=== PATIENT | male | born 1950 | race Caucasian/White ===

== ENCOUNTER 2019-09-23 11:53 | Outpatient (CLI) | payer MEDICARE, OTHER, SELFPAY ==
[2019-09-23 12:39] LABS: Basophils # 0.2 10^3/uL (0.0-0.1); Basophils % 1.7 %; Eosinophils # 0.1 10^3/uL (0.0-0.8); Eosinophils % 0.6 %; Hematocrit 50.6 % (42.0-52.0); Hemoglobin 17.4 g/dL (11.7-16.6); Lymphocytes # 0.7 10^3/uL (0.8-4.8); Lymphocytes % 5.5 %; Mean Corpuscular HGB Conc 34.4 g/dL (30.0-36.0); Mean Corpuscular Hemoglobin 38.4 pg (28.0-34.0); Mean Corpuscular Volume 111.7 fL (80-94); Mean Platelet Volume 9.8 fL (7.4-10.4); Monocytes # 0.3 10^3/uL (0.2-0.9); Monocytes % 2.4 %; Nucleated Red Blood Cells % 0 %; Platelet Count 323 10^3/cmm (130-400); Red Blood Count 4.53 10^6/uL (4.1-5.3); Red Cell Distribution Width 16.7 % (12.1-15.1); White Blood Count 12.3 10^3/uL (4.0-10.0)
[2019-09-23 13:00] LABS: Ferritin 161 ng/mL (30-400)
[2019-09-23 13:17] LABS: Slide Review Slide Review Perform
[2019-09-23 13:31] VITALS: BP 120/93; PULSE 61; RESP 20; TEMP 36.1; O2SAT 95
[2019-09-23 13:36] VITALS: BMI 31.6
== END 2019-09-23 11:54 | disposition home or self-care (01) ==
PROVIDERS: Family Provider Nurse Practitioner; PCP Family Medicine; Visit Provider Surgery Plastic and Reconstructive Surgery
DX: E83.119 Hemochromatosis, unspecified (principal)
CPT/HCPCS: 36415; 82728; 85025; 99195; J2001

== ENCOUNTER → 2019-10-05 10:53 | Outpatient (BNVA) | payer MEDICARE, OTHER, SELFPAY | PROVIDERS: Family Provider Nurse Practitioner; PCP Family Medicine; Visit Provider Surgery Plastic and Reconstructive Surgery | DX: D75.1 Secondary polycythemia (principal) | CPT/HCPCS: 85025 ==

== ENCOUNTER → 2019-11-03 10:33 | Outpatient (BNVA) | payer MEDICARE, OTHER, SELFPAY | PROVIDERS: Family Provider Nurse Practitioner; PCP Family Medicine; Visit Provider Surgery Plastic and Reconstructive Surgery | DX: D45 Polycythemia vera (principal) | CPT/HCPCS: 85025 ==

== ENCOUNTER → 2019-12-03 09:32 | Outpatient (BNVA) | payer MEDICARE, OTHER, SELFPAY | PROVIDERS: Family Provider Nurse Practitioner; PCP Family Medicine; Visit Provider Surgery Plastic and Reconstructive Surgery | DX: D45 Polycythemia vera (principal) | CPT/HCPCS: 85025 ==

== ENCOUNTER → 2020-01-06 09:02 | Outpatient (BNVA) | payer MEDICARE, OTHER, SELFPAY | PROVIDERS: Family Provider Nurse Practitioner; PCP Family Medicine; Visit Provider Surgery Plastic and Reconstructive Surgery | DX: D45 Polycythemia vera (principal) | CPT/HCPCS: 85025 ==

== ENCOUNTER → 2020-02-08 10:08 | Outpatient (BNVA) | payer MEDICARE, OTHER, SELFPAY | PROVIDERS: Family Provider Nurse Practitioner; PCP Family Medicine; Visit Provider Surgery Plastic and Reconstructive Surgery | DX: D45 Polycythemia vera (principal) | CPT/HCPCS: 85025 ==

== ENCOUNTER → 2020-03-14 13:57 | Outpatient (BNVA) | payer MEDICARE, OTHER, SELFPAY | PROVIDERS: Family Provider Nurse Practitioner; PCP Family Medicine; Visit Provider Surgery Plastic and Reconstructive Surgery | DX: E83.119 Hemochromatosis, unspecified (principal) | CPT/HCPCS: 85025 ==

== ENCOUNTER → 2020-04-13 14:38 | Outpatient (BNVA) | payer MEDICARE, OTHER, SELFPAY | PROVIDERS: Family Provider Nurse Practitioner; PCP Family Medicine; Visit Provider Surgery Plastic and Reconstructive Surgery | DX: E83.119 Hemochromatosis, unspecified (principal) | CPT/HCPCS: 85025 ==

== ENCOUNTER → 2020-05-23 15:44 | Outpatient (BNVA) | payer MEDICARE, OTHER, SELFPAY | PROVIDERS: Family Provider Nurse Practitioner; PCP Family Medicine; Visit Provider Surgery Plastic and Reconstructive Surgery | DX: D45 Polycythemia vera (principal) | CPT/HCPCS: 85025 ==

== ENCOUNTER → 2020-06-24 13:04 | Outpatient (BNVA) | payer MEDICARE, OTHER, SELFPAY | PROVIDERS: Family Provider Nurse Practitioner; PCP Family Medicine; Visit Provider Nurse Practitioner Family | DX: D45 Polycythemia vera (principal) | CPT/HCPCS: 85025 ==

== ENCOUNTER → 2020-07-13 10:47 | Outpatient (BNVA) | payer MEDICARE, OTHER, SELFPAY | PROVIDERS: Family Provider Nurse Practitioner; PCP Family Medicine; Visit Provider Nurse Practitioner Family | DX: D45 Polycythemia vera (principal) | CPT/HCPCS: 85025 ==

== ENCOUNTER → 2020-09-01 08:47 | Outpatient (BNVA) | payer MEDICARE, OTHER, SELFPAY | PROVIDERS: Family Provider Nurse Practitioner; PCP Family Medicine; Visit Provider Surgery Plastic and Reconstructive Surgery | DX: D75.1 Secondary polycythemia (principal) | CPT/HCPCS: 85025 ==

== ENCOUNTER → 2020-10-26 10:39 | Outpatient (BNVA) | payer MEDICARE, OTHER, SELFPAY | PROVIDERS: Family Provider Nurse Practitioner; PCP Family Medicine; Visit Provider Surgery Plastic and Reconstructive Surgery | DX: D75.1 Secondary polycythemia (principal) | CPT/HCPCS: 85025 ==

== ENCOUNTER → 2020-11-23 09:08 | Outpatient (BNVA) | payer MEDICARE, OTHER, SELFPAY | PROVIDERS: Family Provider Nurse Practitioner; PCP Family Medicine; Visit Provider Surgery Plastic and Reconstructive Surgery | DX: D64.9 Anemia, unspecified (principal); E83.110 Hereditary hemochromatosis; E55.9 Vitamin D deficiency, unspecified | CPT/HCPCS: 82306; 82607; 82746; 83090; 83550; 84153; 85025 ==

== ENCOUNTER → 2021-01-10 13:09 | Outpatient (BNVA) | payer MEDICARE, OTHER, SELFPAY | PROVIDERS: Family Provider Nurse Practitioner; PCP Family Medicine; Visit Provider Surgery Plastic and Reconstructive Surgery | DX: D75.1 Secondary polycythemia (principal) | CPT/HCPCS: 85025 ==

== ENCOUNTER → 2021-02-21 09:18 | Outpatient (BNVA) | payer MEDICARE, OTHER, SELFPAY | PROVIDERS: Family Provider Nurse Practitioner; PCP Family Medicine; Visit Provider Surgery Plastic and Reconstructive Surgery | DX: D45 Polycythemia vera (principal) | CPT/HCPCS: 85025 ==

== ENCOUNTER → 2021-06-06 14:14 | Outpatient (BNVA) | payer MEDICARE, OTHER, SELFPAY | PROVIDERS: Family Provider Nurse Practitioner; PCP Family Medicine; Visit Provider Surgery Plastic and Reconstructive Surgery | DX: D64.9 Anemia, unspecified (principal) | CPT/HCPCS: 85025 ==

== ENCOUNTER 2021-07-19 13:38 | Inpatient (IN) | payer MEDICARE, OTHER, SELFPAY ==
[2021-07-19 13:50] VITALS: BP 126/69; PULSE 80; RESP 18; TEMP 36.8; O2SAT 86; BMI 31.4
--- NOTE | 2021-07-19 13:55 | XR_ITS ---
WS: [id number] Exam: XR chest 1V portable [id number] Date/Time of Exam: 07/19/2021 1:55 PM Reason For Exam: covid No previous exams. Groundglass and consolidating infiltrates noted in the right lung and also left lower lung zone. Nor mal cardiomediastinal silhouette. No pleural effusions or pneumothorax. Bony structures are intact. XR/XR chest 1V portable [id number] IMPRESSION: 1. Groundglass and consolidating infiltrates in the right lung most marked in t he right basal region. There is also mild groundglass infiltrate in the left lo wer lung zone.
--- NOTE | 2021-07-19 16:48 | W.ED.SOB ---
HPI - SOB/Dyspnea General: Chief Complaint: ER Hold Stated Complaint: COVID +/SOB/DIZZY Time Seen by Provider: 07/19/21 16:48 History of Present Illness: HPI Narrative: Mr. Duarte is a 71-year-old gentleman with significant past medical history of atrial fibrillation and polycythemia vera who presents the emergency department due to generalized malaise. Symptom onset was 7 days ago, he endorses fatigue, cough, chills, generalized malaise. He is known Covid positive. Overall the course of symptoms has been worsening. Intensity is moderate to severe. He does not typically wear oxygen and is now requiring oxygen. No other significant changes to health, alleviating, or exacerbating factors identified Review of Systems General: Reports: 10 or more systems reviewed and unremarkable except in HPI and below PFS ED PFSH: Medical History (Updated 07/22/21 @ 14:57 by Amaya Buck MD) Atrial fibrillation on amiodarone and metoprolol Benign prostatic hyperplasia Polycythemia vera Surgical History (Updated 07/20/21 @ 04:42 by Catia Lei MD) No pertinent past surgical history Family History (Updated 07/20/21 @ 04:43 by Catia Lei MD) Other Atrial fibrillation Denies family history of Polycythemia vera Social History (Updated 07/20/21 @ 04:44 by Catia Lei MD) Smoking and tobacco status: never smoked Alcohol intake: never Substance/Drug Use: never Lives independently: Yes Household members: spouse and children Marital status: Physical Exam Narrative: EXAM NARRATIVE: GENERAL/CONSTITUTIONAL -ill-appearing. Nontoxic Eyes - PERRL, no conjunctival injection ENMT - Atraumatic external nose and ears. Dry mucous membranes NECK - supple. trachea midline CARDIOVASCULAR - regular rate and rhythm. Peripheral pulses 2+ and equal RESPIRATORY -diminished to auscultation and coarse bilaterally. Increased work of breathing with mild accessory muscle use and marked worsening with removal of oxygen ABDOMEN/GI - Nontender/Nondistended. MSK - Extremities without obvious deformity or tenderness to palpation SKIN - Warm, Dry NEURO - alert and appropriately oriented. Moves all extremities equally. Course ED course: - Patient was seen and evaluated by me at bedside - Patient placed on cardiac monitors, IV access obtained - Initial evaluation notable for ill appearance, respiratory distress when oxygen removed as noted above -Treatment ordered - Labs notable for no leukocyte, elevated hemoglobin likely combination of dehydration and polycythemia. Low PO2 even on supplemental oxygen. Metabolic panel notable for likely dehydration. Covid positive. - Imaging notable for groundglass and consolidating infiltrate - Upon serial reexamination after treatment the patient was mildly improved with improvement on supplemental oxygen - Based on patient history, evaluation, labs, and imaging as interpreted the most likely cause of the patient's condition is COVID-19 pneumonia with acute hypoxic respiratory failure - The results of ED evaluation were discussed with the patient including plan for admission due to requirement for level of care not available if discharged to prevent significant worsening/deterioration. - Hospitalist service contacted and agreed admit the patient - Patient was admitted without further deterioration or significant events. Vital Signs: Vital signs: Vital Signs Temperature 97.8 F 07/24/21 17:00 Pulse Rate 78 07/24/21 19:57 Respiratory Rate 18 07/24/21 19:57 Blood Pressure 112/64 07/24/21 17:00 Pulse Oximetry 91 07/24/21 19:57 MDM - SOB/Dyspnea Medical Records: Attestation: I reviewed the patient's medical records. Lab Data: Attestation: I reviewed the patient's lab results. Labs: Lab Results 07/19/21 07/19/21 07/19/21 17:00 17:00 17:00 WBC 8.6 10^3/uL 10^3/ uL (4.0-10.0) RBC 4.90 10^6/uL 10^6 /uL (4.1-5.3) Hgb 18.8 g/dL H g/dL (11.7-16.6) Hct 55.2 % H % (42.0-52.0) MCV 112.7 fl H fl (80-94) MCH 38.4 pg H pg (28.0-34.0) MCHC 34.1 g/dL g/dL (30.0-36.0) RDW 14.7 % % (12.1-15.1) Plt Count 247 10^3/cmm 10^3 /cmm (130-400) MPV 9.9 fL fL (7.4-10.4) Neut % (Auto) 94.7 % % Lymph % (Auto) 2.0 % % [place] % (Auto) 1.9 % % Eos % (Auto) 0.0 % % Baso % (Auto) 0.5 % % Neut # (Auto) 8.10 10^3/uL H 10 ^3/uL (1.8-7.7) Lymph # (Auto) 0.2 10^3/uL L 10^ 3/uL (0.8-4.8) [place] # (Auto) 0.2 10^3/uL 10^3/ uL (0.2-0.9) Eos # (Auto) 0.0 10^3/uL 10^3/ uL (0.0-0.8) Baso # (Auto) 0.0 10^3/uL 10^3/ uL (0.0-0.1) Nucleated RBC % (a uto) 0 % % Nucleated RBCs # 0.0 /100WBC /100W BC PT INR APTT Fibrinogen D-Dimer Specimen Type Sample Site ABG pH ABG pCO2 ABG pO2 ABG HCO3 ABG Base Excess Omar Test Hematocrit O2 Delivery Device O2 Liters/Min Foreign Language Stenographer ID Sodium 130 mmol/L L mmol /L (136-145) Potassium 4.1 mmol/L mmol/L (3.5-5.1) Chloride 92 mmol/L L mmol/ L (98-107) Carbon Dioxide 26 mmol/L mmol/L (22-29) Anion Gap 16.1 (5-19) BUN 28 mg/dL H mg/dL (8-23) Creatinine 1.2 mg/dL mg/dL (0.7-1.2) GFR Calculation Not Reportable Glucose 138 mg/dL H mg/dL (65-115) POC Glucose Estimat Average Gl ucose Hemoglobin A1c Calculated Osmolal ity 278 mOsm/kg L mOs m/kg (285-295) Lactic Acid Calcium 8.0 mg/dL L mg/dL (8.5-10.5) Phosphorus Magnesium Ferritin Total Bilirubin 1.7 mg/dL H mg/dL (0.15-1.2) AST 16 U/L U/L (0-40) ALT 18 U/L U/L (0-41) Alkaline Phosphata se 93 IU/L IU/L (40-130) Lactate Dehydrogen ase Creatine Kinase Troponin T Baselin e 13 ng/L ng/L (0-15) Troponin T 120 Min [place] Delta Troponin T Troponin T Hi Sens 6Hr Troponin T Hi Sens 6Hr Delta C-Reactive Protein 152.0 mg/L H mg/L (0.0-4.9) NT-Pro-B Natriuret Pep Total Protein 6.5 g/dL L g/dL (6.6-8.7) Albumin 3.4 g/dL L g/dL (3.5-5.2) Globulin 3.1 g/dL g/dL (1.3-4.6) Procalcitonin 0.38 ng/mL ng/mL (0-0.5) Nasal/Oral COVID-1 9 PCR Influenza Type A A g Influenza Type B A g SARS-CoV-2 Ag (Rap id) 07/19/21 07/19/21 07/19/21 17:42 19:41 21:21 WBC RBC Hgb Hct MCV MCH MCHC RDW Plt Count MPV Neut % (Auto) Lymph % (Auto) [place] % (Auto) Eos % (Auto) Baso % (Auto) Neut # (Auto) Lymph # (Auto) [place] # (Auto) Eos # (Auto) Baso # (Auto) Nucleated RBC % (a uto) Nucleated RBCs # PT INR APTT Fibrinogen D-Dimer Specimen Type Arterial Sample Site Radial, left ABG pH 7.50 H (7.35-7.45) ABG pCO2 33.0 mmHg L mmHg (35-45) ABG pO2 49.9 mmHg L mmHg (80.0-100.0) ABG HCO3 25.4 mmol/L mmol/ L (22-26) ABG Base Excess 2.9 mmol/L H mmol /L (-2.0-2.0) Omar Test Pos Hematocrit 57.2 % H % (42-52) O2 Delivery Device Nc O2 Liters/Min 4.0 % % Foreign Language Stenographer ID [place] Sodium Potassium Chloride Carbon Dioxide Anion Gap BUN Creatinine GFR Calculation Glucose POC Glucose Estimat Average Gl ucose Hemoglobin A1c Calculated Osmolal ity Lactic Acid Calcium Phosphorus Magnesium Ferritin Total Bilirubin AST ALT Alkaline Phosphata se Lactate Dehydrogen ase Creatine Kinase Troponin T Baselin e Troponin T 120 Min [place] 12.52 ng/L ng/L (0-15) Delta Troponin T -0.48 ABS# L ABS# (0-10) Troponin T Hi Sens 6Hr Troponin T Hi Sens 6Hr Delta C-Reactive Protein NT-Pro-B Natriuret Pep Total Protein Albumin Globulin Procalcitonin Nasal/Oral COVID-1 9 PCR Detected H Influenza Type A A g Influenza Type B A g SARS-CoV-2 Ag (Rap id) 07/19/21 07/19/21 07/19/21 21:21 23:11 23:11 WBC RBC Hgb Hct MCV MCH MCHC RDW Plt Count MPV Neut % (Auto) Lymph % (Auto) [place] % (Auto) Eos % (Auto) Baso % (Auto) Neut # (Auto) Lymph # (Auto) [place] # (Auto) Eos # (Auto) Baso # (Auto) Nucleated RBC % (a uto) Nucleated RBCs # PT 18.80 SECONDS H S ECONDS (12.1-14.9) INR 1.53 H (0.8-1.2) APTT 37.5 SECONDS H SE CONDS (23.9-36.7) Fibrinogen 590 mg/dL H mg/dL (174-498) D-Dimer 0.91 ug/mIFEU H u g/mIFEU (0-0.59) Specimen Type Sample Site ABG pH ABG pCO2 ABG pO2 ABG HCO3 ABG Base Excess Omar Test Hematocrit O2 Delivery Device O2 Liters/Min Foreign Language Stenographer ID Sodium Potassium Chloride Carbon Dioxide Anion Gap BUN Creatinine GFR Calculation Glucose POC Glucose Estimat Average Gl ucose Hemoglobin A1c Calculated Osmolal ity Lactic Acid Calcium Phosphorus Magnesium Ferritin Total Bilirubin AST ALT Alkaline Phosphata se Lactate Dehydrogen ase Creatine Kinase Troponin T Baselin e Troponin T 120 Min [place] Delta Troponin T Troponin T Hi Sens 6Hr 11.01 ng/L ng/L (0-15) Troponin T Hi Sens 6Hr Delta -1.99 ng/L L ng/L (0-12) C-Reactive Protein NT-Pro-B Natriuret Pep Total Protein Albumin Globulin Procalcitonin Nasal/Oral COVID-1 9 PCR Influenza Type A A g Influenza Type B A g SARS-CoV-2 Ag (Rap id) Positive H (Negative) 07/19/21 07/19/21 07/19/21 23:11 23:11 23:11 WBC RBC Hgb Hct MCV MCH MCHC RDW Plt Count MPV Neut % (Auto) Lymph % (Auto) [place] % (Auto) Eos % (Auto) Baso % (Auto) Neut # (Auto) Lymph # (Auto) [place] # (Auto) Eos # (Auto) Baso # (Auto) Nucleated RBC % (a uto) Nucleated RBCs # PT INR APTT Fibrinogen D-Dimer Specimen Type Sample Site ABG pH ABG pCO2 ABG pO2 ABG HCO3 ABG Base Excess Omar Test Hematocrit O2 Delivery Device O2 Liters/Min Foreign Language Stenographer ID Sodium Potassium Chloride Carbon Dioxide Anion Gap BUN Creatinine GFR Calculation Glucose POC Glucose 141 mg/dL H mg/dL (70-110) Estimat Average Gl ucose Hemoglobin A1c Calculated Osmolal ity Lactic Acid 1.0 mmol/L mmol/L (0.5-2.2) Calcium Phosphorus Magnesium Ferritin 473 ng/mL H ng/mL (30-400) Total Bilirubin AST ALT Alkaline Phosphata se Lactate Dehydrogen ase 234 U/L H U/L (135-225) Creatine Kinase 84 U/L U/L (39-308) Troponin T Baselin e Troponin T 120 Min [place] Delta Troponin T Troponin T Hi Sens 6Hr Troponin T Hi Sens 6Hr [place] C-Reactive Protein NT-Pro-B Natriuret Pep 255 pg/mL H pg/mL (0-125) Total Protein Albumin Globulin Procalcitonin Nasal/Oral COVID-1 9 PCR Influenza Type A A g Influenza Type B A g SARS-CoV-2 Ag (Rap id) 07/19/21 07/20/21 07/20/21 23:13 05:48 05:48 WBC 7.0 10^3/uL 10^3/ uL (4.0-10.0) RBC 4.58 10^6/uL 10^6 /uL (4.1-5.3) Hgb 17.3 g/dL H g/dL (11.7-16.6) Hct 51.2 % % (42.0-52.0) MCV 111.8 fl H fl (80-94) MCH 37.8 pg H pg (28.0-34.0) MCHC 33.8 g/dL g/dL (30.0-36.0) RDW 14.5 % % (12.1-15.1) Plt Count 198 10^3/cmm 10^3 /cmm (130-400) MPV 10.5 fL H fL (7.4-10.4) Neut % (Auto) 96.5 % % Lymph % (Auto) 1.6 % % [place] % (Auto) 0.9 % % Eos % (Auto) 0.0 % % Baso % (Auto) 0.4 % % Neut # (Auto) 6.77 10^3/uL 10^3 /uL (1.8-7.7) Lymph # (Auto) 0.1 10^3/uL L 10^ 3/uL (0.8-4.8) [place] # (Auto) 0.1 10^3/uL L 10^ 3/uL (0.2-0.9) Eos # (Auto) 0.0 10^3/uL 10^3/ uL (0.0-0.8) Baso # (Auto) 0.0 10^3/uL 10^3/ uL (0.0-0.1) Nucleated RBC % (a uto) 0 % % Nucleated RBCs # 0.0 /100WBC /100W BC PT INR APTT Fibrinogen D-Dimer Specimen Type Sample Site ABG pH ABG pCO2 ABG pO2 ABG HCO3 ABG Base Excess Omar Test Hematocrit O2 Delivery Device O2 Liters/Min Foreign Language Stenographer ID Sodium 133 mmol/L L mmol /L (136-145) Potassium 4.9 mmol/L mmol/L (3.5-5.1) Chloride 96 mmol/L L mmol/ L (98-107) Carbon Dioxide 23 mmol/L mmol/L (22-29) Anion Gap 18.9 (5-19) BUN 29 mg/dL H mg/dL (8-23) Creatinine 0.9 mg/dL mg/dL (0.7-1.2) GFR Calculation Not Reportable Glucose 190 mg/dL H mg/dL (65-115) POC Glucose Estimat Average Gl ucose Hemoglobin A1c Calculated Osmolal ity 287 mOsm/kg mOsm/ kg (285-295) Lactic Acid Calcium 8.1 mg/dL L mg/dL (8.5-10.5) Phosphorus 3.8 mg/dL mg/dL (2.5-4.5) Magnesium 2.4 mg/dL H mg/dL (1.7-2.3) Ferritin Total Bilirubin 1.2 mg/dL mg/dL (0.15-1.2) AST 13 U/L U/L (0-40) ALT 14 U/L U/L (0-41) Alkaline Phosphata se 77 IU/L IU/L (40-130) Lactate Dehydrogen ase Creatine Kinase Troponin T Baselin e Troponin T 120 Min [place] Delta Troponin T Troponin T Hi Sens 6Hr Troponin T Hi Sens 6Hr Delta C-Reactive Protein NT-Pro-B Natriuret Pep Total Protein 5.9 g/dL L g/dL (6.6-8.7) Albumin 3.3 g/dL L g/dL (3.5-5.2) Globulin 2.6 g/dL g/dL (1.3-4.6) Procalcitonin Nasal/Oral COVID-1 9 PCR Influenza Type A A g Negative (Negative) Influenza Type B A g Negative (Negative) SARS-CoV-2 Ag (Rap id) 07/20/21 05:48 WBC RBC Hgb Hct MCV MCH MCHC RDW Plt Count MPV Neut % (Auto) Lymph % (Auto) [place] % (Auto) Eos % (Auto) Baso % (Auto) Neut # (Auto) Lymph # (Auto) [place] # (Auto) Eos # (Auto) Baso # (Auto) Nucleated RBC % (a uto) Nucleated RBCs # PT INR APTT Fibrinogen D-Dimer Specimen Type Sample Site ABG pH ABG pCO2 ABG pO2 ABG HCO3 ABG Base Excess Omar Test Hematocrit O2 Delivery Device O2 Liters/Min Foreign Language Stenographer ID Sodium Potassium Chloride Carbon Dioxide Anion Gap BUN Creatinine GFR Calculation Glucose POC Glucose Estimat Average Gl ucose 100 Hemoglobin A1c 5.1 % % (4.0-6.0) Calculated Osmolal ity Lactic Acid Calcium Phosphorus Magnesium Ferritin Total Bilirubin AST ALT Alkaline Phosphata se Lactate Dehydrogen ase Creatine Kinase Troponin T Baselin e Troponin T 120 Min [place] Delta Troponin T Troponin T Hi Sens 6Hr Troponin T Hi Sens 6Hr Delta C-Reactive Protein NT-Pro-B Natriuret Pep Total Protein Albumin Globulin Procalcitonin Nasal/Oral COVID-1 9 PCR Influenza Type A A g Influenza Type B A g SARS-CoV-2 Ag (Rap id) EKG Data^: EKG 1: Attestation: I personally reviewed and interpreted this EKG as follows: EKG Interpretation Date: 07/19/21 EKG interpretation time: 18:02 Interpretation: Twelve-lead EKG shows a regular rhythm at a rate of 81. AR interval 158, QRS duration 92, QTc 408. Normal axis. Interpretation: Sinus rhythm. PVC. 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
--- NOTE | 2021-07-19 17:19 | ECG_ITS ---
[facility] Test Date: 2021-07-19 Pat Name: Daquan Duarte Department: Room: Gender: Male Hub Borer: : [id number] Requested By: Brenden Carlson Order Number: [id number] Kat MD: Little Mccabe M.D. Measurements Intervals [place] Rate: 81 P: 130 [place]: 158 QRS: 12 QRSD: 92 T: 30 QT: 370 QTc: 432 Interpretive Statements SINUS RHYTHM WITH OCCASIONAL WITH OCCASIONAL SUPRAVENTRICULAR PREMATURE COMPLEXES No previous ECG available for comparison Electronically Signed On 07-20-2021 4:16:22 CURB SETTER HELPER by Little Mccabe M.D. [id number]
[2021-07-19 17:24] LABS: Basophils % 0.5 %; Hematocrit 55.2 % (42.0-52.0); Hemoglobin 18.8 g/dL (11.7-16.6); Lymphocytes # 0.2 10^3/uL (0.8-4.8); Mean Corpuscular HGB Conc 34.1 g/dL (30.0-36.0); Mean Corpuscular Hemoglobin 38.4 pg (28.0-34.0); Mean Corpuscular Volume 112.7 fl (80-94); Mean Platelet Volume 9.9 fL (7.4-10.4); Monocytes # 0.2 10^3/uL (0.2-0.9); Monocytes % 1.9 %; Neutrophils % 94.7 %; Nucleated Red Blood Cells % 0 %; Platelet Count 247 10^3/cmm (130-400); Red Cell Distribution Width 14.7 % (12.1-15.1); White Blood Count 8.6 10^3/uL (4.0-10.0)
[2021-07-19 17:37] LABS: Alanine Aminotransferase 18 U/L (0-41); Albumin Level 3.4 g/dL (3.5-5.2); Alkaline Phosphatase 93 IU/L (40-130); Anion Gap 16.1 (5-19); Aspartate Amino Transferase 16 U/L (0-40); Blood Urea Nitrogen 28 mg/dL (8-23); Carbon Dioxide 26 mmol/L (22-29); Chloride 92 mmol/L (98-107); Globulin 3.1 g/dL (1.3-4.6); Glucose 138 mg/dL (65-115); Osmolality Calculated 278 mOsm/kg (285-295); Potassium 4.1 mmol/L (3.5-5.1); Sodium 130 mmol/L (136-145); Total Bilirubin 1.7 mg/dL (0.15-1.2); Total Protein 6.5 g/dL (6.6-8.7)
[2021-07-19 17:44] LABS: Procalcitonin 0.38 ng/mL (0-0.5)
[2021-07-19 17:46] VITALS: BP 136/74; PULSE 81; RESP 15; TEMP 39.4; O2SAT 88
[2021-07-19 17:57] LABS: Arterial Blood Gas Hematocrit 57.2 % (42-52); Base Excess ABG 2.9 mmol/L (-2.0-2.0); Blood Gas Allen Test Pos; Blood Gas Sample Site Radial, left; Blood Gas Sample Type Arterial; HCO3 ABG 25.4 mmol/L (22-26); Oxygen Device NC; PO2 ABG 49.9 mmHg (80.0-100.0)
[2021-07-19] MEDS: sodium chloride 0.9% 500 ML 999 ML IV (18:16)
[2021-07-19] MEDS: acetaminophen 500 mg Tablet 1000 MG PO (18:22)
[2021-07-19 18:27] LABS: Troponin(5th) Baseline 13 ng/L (0-15)
[2021-07-19 20:28] LABS: Troponin 5 2HR 12.52 ng/L (0-15)
[2021-07-19 20:29] LABS: Troponin 5 2HR Delta -0.48 ABS# (0-10)
[2021-07-19] MEDS: dexamethasone 10 mg/mL INJ 6 MG IVP (21:12)
[2021-07-19 21:22] VITALS: BP 103/49; PULSE 63; RESP 18; TEMP 36.7; O2SAT 94
[2021-07-19 21:48] LABS: SARS Covid-2 Antigen Positive (Negative)
[2021-07-19 22:30] VITALS: BP 107/63; PULSE 56; RESP 25; O2SAT 93
--- NOTE | 2021-07-19 22:49 | P.HP_ITS ---
Providers/Chief Complaint Admitting Physician: Catia Lei Primary Care Provider: Deisy Hernández in [place] Chief Complaint: COVID +/SOB/DIZZY History of Present Illness Daquan Duarte is a 71 year old male who presented to the emergency room with chief complaint of not feeling well. He was recently diagnosed with Covid. Symptom onset was around July 09 or so. He had upper respiratory symptoms, malaise, fatigue, cough, subjective fever. Denies loss of taste or smell. He has not had much of an appetite. No GI symptoms. His has also been sick. He was prescribed some a azithromycin, Tessalon Perles and dexamethasone. He has gradually worsened over time and came into the emergency room today along with his because of how bad he felt. He was noted to be hypoxemic with room air oxygen saturations around 85-86%. He initially was only on 2 L of oxygen to maintain appropriate saturations but subsequently required up to 5 L by nasal cannula. CRP was 152. He has a history of polycythemia vera on chronic Eliquis and a history of atrial fibrillation currently in sinus rhythm on amiodarone and beta-blockade. With comorbid conditions and current findings he is being admitted for further evaluation as indicated and treatment, monitoring. He has not been vaccinated. Review of Systems Const: Reports: fever(s) (Subjective), chills, body aches, change in appetite, fatigue and malaise Eyes: Denies: change in vision or eye discomfort ENMT: Reports: nasal congestion; Denies: throat pain or other (loss of taste and smell) Card: Reports: palpitations, lightheadedness and dyspnea on exertion; Denies: chest pain or edema Resp: Reports: dyspnea, productive cough, non-productive cough, wheezing and chest congestion; Denies: pain on inspiration or hemoptysis GI: Denies: abdominal pain, nausea, vomiting, diarrhea or constipation : Denies: urinary frequency Musc: Reports: back pain, extremity pain, muscle cramps and muscle weakness; Denies: neck pain, joint redness or joint warmth Skin/Breast: Denies: rash, pruritus or sores Neuro: Reports: headache(s), weakness in extremities (general rather than focal) and dizziness; Denies: numbness in extremities, difficulty walking, difficulty communicating thoughts or involuntary movements Psych: Reports: anxiety Dagoberto/Lymph: Denies: easy bruising or easy bleeding Medications/Allergies Home Medications Medication Instructions Recorded Confirmed Last Taken Type apixaban [Eliquis] 5 mg PO BID 09/23/19 09/23/19 Unknown History hydroxyurea 2,000 mg PO DAILY 09/23/19 09/23/19 Unknown History metoprolol succinate 25 mg PO BID 09/23/19 09/23/19 Unknown History terazosin 1 mg PO DAILY 09/23/19 09/23/19 09/22/19 History amiodarone 100 mg PO DAILY 07/20/21 07/20/21 07/19/21 History Allergies Allergy/AdvReac Type Severity Reaction Status Date / Time No Known Allergies Allergy Verified 09/23/19 13:38 PFSH Acute PFSH: Medical History (Updated 07/20/21 @ 05:01 by Catia Lei MD) Atrial fibrillation on amiodarone and metoprolol Benign prostatic hyperplasia Polycythemia vera on hydroxyurea, no phlebotomy needed in years Surgical History (Updated 07/20/21 @ 04:42 by Catia Lei MD) No pertinent past surgical history Family History (Updated 07/20/21 @ 04:43 by Catia Lei MD) Other Atrial fibrillation Denies family history of Polycythemia vera Social History (Updated 07/20/21 @ 04:44 by Catia Lei MD) Smoking and tobacco status: never smoked Alcohol intake: never Substance/Drug Use: never Lives independently: Yes Household members: spouse and children Marital status: Vitals/I&O/Wt Last Vital Signs Temp 98.1 F 07/19/21 21:22 Pulse 63 07/19/21 21:22 Resp 18 07/19/21 21:22 BP 103/49 07/19/21 21:22 Pulse Ox 94 07/19/21 21:22 07/19/21 07/19/21 07/19/21 06:59 14:59 22:59 Intake Total 500 / 500 Balance 500 / 500 Weight last 48 hrs Weight 107.955 kg Physical Exam Narrative: EXAM NARRATIVE: Constitutional: alert, ill appearing, recent diaphoresis evident HEENT: normocephalic, atraumatic, conjunctiva injected, bluish green irises whic h stand out, rhinorrhea, dry membranes Neck: supple Respiratory: scattered wheezes & crackles, tachypnea, mild retractions noted after movement, on 5 liters humidified oxygen Cardiovascular: regular rhythm, no murmurs, pulses 1+ x 4, cap refill 2-3 seconds Abdomen: soft, non tender, positive bowel sounds Extremities: trace edema, no calf tenderness Skin: fingers and toes dusky/cool, no mottling otherwise noted, no rash, face erythematous Neuro: face symmetric, speech clear although thinks for longer than expected before answering questions, rephrasing needed at times, moves all extremities but generally weak Psych: cooperative, flat affect Data : 07/19/21 17:00 07/19/21 17:00 Other Labs: Laboratory Tests 07/19/21 07/19/21 07/19/21 17:00 17:42 ABG pH 7.50 H ABG pCO2 33.0 L ABG pO2 49.9 L ABG HCO3 25.4 O2 Delivery Device Nc O2 Liters/Min 4.0 Total Bilirubin 1.7 H AST 16 ALT 18 Alkaline Phosphatase 93 Troponin T Baseline 13 Troponin T 120 Minute 12.52 C-Reactive Protein 152.0 H Total Protein 6.5 L Albumin 3.4 L Procalcitonin 0.38 Influenza Type A Ag Negative Influenza Type B Ag Negative SARS-CoV-2 Ag (Rapid) Positive H Impressions Chest X-Ray 07/19/21 13:55 IMPRESSION: 1. Groundglass and consolidating infiltrates in the right lung most marked in the right basal region. There is also mild groundglass infiltrate in the left lower lung zone. Micro: Microbiology 07/19/21 19:41 Blood Culture - Preliminary Blood SPECIMEN COLLECTED 07/19/21 19:41 Blood Culture - Preliminary Blood SPECIMEN COLLECTED A&P Assessment and plan (1) COVID-19: With hypoxemia requiring oxygen therapy after as high as 6 L by nasal cannula thus far Status: Acute (2) Polycythemia vera: On hydroxyurea Status: Chronic (3) Chronic anticoagulation: On eliquis Status: Chronic (4) Atrial fibrillation: Currently in sinus rhythm on amiodarone and metoprolol Status: Chronic Qualifiers: Atrial fibrillation type: paroxysmal Qualified Code(s): I48.0 - Paroxysmal atrial fibrillation (5) Hyperglycemia: No histroy of diabetes, suspect related to recent steroid prescription Status: Acute (6) Benign prostatic hyperplasia: Chronically on Terazosin Status: Chronic Qualifiers: Lower urinary tract symptom presence: symptoms present Lower urinary tract symptom detail: straining on urination Qualified Code(s): N40.1 - Benign prostatic hyperplasia with lower urinary tract symptoms; R39.16 - Straining to void Additional A&P Information Inpatient admission Initiate dexamethasone and remdesivir Oxygen therapy as needed to maintain saturations Respiratory therapy to follow Albuterol and spiriva Check baseline inflammatory and other markers Monitor H&H Liter of fluid has been ordered from the emergency room, given how dry he is on exam will let this continue and reevaluate Continue home hydroxyurea Continue home eliquis Continue home amiodarone and lower dose of metoprolol succinate only once a day rather than twice a day Continue home Terazosin Sliding scale insulin for hyperglycemia, check hemoglobin A1c Add PPI Vitamin C, vitamin D, zinc Eliquis provides for DVT prophylaxis Supportive care otherwise Currently anticipate discharge home, possibly with oxygen therapy, however it will ultimately depend on clinical course Findings, concerns and plans, including treatment with Remdesivir were discussed, given an opportunity to ask questions Full code Attestations Medical Necessity Statement*: Anticipate stay greater than 2 midnights in patient with covid, requiring oxygen and other care as noted above. At high risk of rapid clinical decline for reasons noted. Coding Level of Care Code Acute Icu Manager for [facility] Maryd Diagnoses COVID-19 U07.1 Polycythemia vera D45 Chronic anticoagulation Z79.01 Atrial fibrillation I48.0 Atrial fibrillation type: paroxysmal Hyperglycemia R73.9 Benign prostatic hyperplasia N40.1; R39.16 Lower urinary tract symptom presence: symptoms present Lower urinary tract symptom detail: straining on urination
[2021-07-19 23:14] LABS: Glucose Point of Care 141 mg/dL (70-110)
[2021-07-19 23:30] VITALS: BP 107/60; PULSE 51; RESP 23; O2SAT 95
[2021-07-19 23:36] LABS: Influenza A by IFA Negative (Negative); Influenza B by IFA Negative (Negative)
[2021-07-19 23:37] LABS: INR 1.53 (0.8-1.2)
[2021-07-19 23:38] LABS: Fibrinogen 590 mg/dL (174-498); Partial Thromboplastin Time 37.5 SECONDS (23.9-36.7)
[2021-07-19 23:40] LABS: D Dimer 0.91 ug/mIFEU (0-0.59)
[2021-07-19 23:48] LABS: Troponin 5 6HR 11.01 ng/L (0-15)
[2021-07-20] VITALS (15 sets, daily range): BP systolic 99–142; BP diastolic 57–78; PULSE 49–89; RESP 16–22; TEMP 36.7–39.6; O2SAT 89–96; BMI 30.7
[2021-07-20 00:05] LABS: Troponin 5 6HR Delta -1.99 ng/L (0-12)
[2021-07-20] MEDS: remdesivir 200 MG in sodium chloride 0.9% (100 ml) 100 ML 100 MG IV (01:10)
[2021-07-20 01:25] LABS: Creatine Phosphokinase 84 U/L (39-308); Ferritin 473 ng/mL (30-400); Lactate Dehydrogenase 234 U/L (135-225)
[2021-07-20 01:31] LABS: NT Pro B Type Natriuretic Pept 255 pg/mL (0-125)
[2021-07-20 05:59] LABS: Basophils % 0.4 %; Hematocrit 51.2 % (42.0-52.0); Hemoglobin 17.3 g/dL (11.7-16.6); Lymphocytes # 0.1 10^3/uL (0.8-4.8); Lymphocytes % 1.6 %; Mean Corpuscular HGB Conc 33.8 g/dL (30.0-36.0); Mean Corpuscular Hemoglobin 37.8 pg (28.0-34.0); Mean Corpuscular Volume 111.8 fl (80-94); Mean Platelet Volume 10.5 fL (7.4-10.4); Monocytes # 0.1 10^3/uL (0.2-0.9); Monocytes % 0.9 %; Neutrophils # 6.77 10^3/uL (1.8-7.7); Neutrophils % 96.5 %; Nucleated Red Blood Cells % 0 %; Platelet Count 198 10^3/cmm (130-400); Red Blood Count 4.58 10^6/uL (4.1-5.3); Red Cell Distribution Width 14.5 % (12.1-15.1)
[2021-07-20 06:07] LABS: Estmated Average Glucose 100; Hemoglobin A1C 5.1 % (4.0-6.0)
[2021-07-20 06:12] LABS: Alanine Aminotransferase 14 U/L (0-41); Albumin Level 3.3 g/dL (3.5-5.2); Alkaline Phosphatase 77 IU/L (40-130); Anion Gap 18.9 (5-19); Aspartate Amino Transferase 13 U/L (0-40); Blood Urea Nitrogen 29 mg/dL (8-23); Calcium 8.1 mg/dL (8.5-10.5); Carbon Dioxide 23 mmol/L (22-29); Chloride 96 mmol/L (98-107); Globulin 2.6 g/dL (1.3-4.6); Glucose 190 mg/dL (65-115); Magnesium 2.4 mg/dL (1.7-2.3); Osmolality Calculated 287 mOsm/kg (285-295); Phosphorus 3.8 mg/dL (2.5-4.5); Potassium 4.9 mmol/L (3.5-5.1); Sodium 133 mmol/L (136-145); Total Bilirubin 1.2 mg/dL (0.15-1.2); Total Protein 5.9 g/dL (6.6-8.7)
[2021-07-20 08:05] LABS: Glucose Point of Care 189 mg/dL (70-110)
[2021-07-20] MEDS: metoprolol succinate ER (24 HR) 25 mg Tablet 12.5 MG PO (09:12)
[2021-07-20] MEDS: hydroxyurea 500 mg Capsule 2000 MG PO (09:13)
[2021-07-20] MEDS: zinc gluconate 50 mg Tablet PO (09:15)
[2021-07-20] MEDS: pantoprazole DR 40 mg Tablet PO (09:15)
[2021-07-20] MEDS: amiodarone 200 mg Tablet 100 MG PO (09:16)
[2021-07-20] MEDS: ascorbic acid 500 mg Tablet 1000 MG PO ×2 (09:16→17:36)
[2021-07-20] MEDS: insulin lispro 100 unit/1 mL SUBCUT ×2 (09:21→11:57)
[2021-07-20] MEDS: docusate sodium 100 mg Capsule PO ×2 (10:21→17:36)
[2021-07-20] MEDS: cholecalciferol (vitamin D3) 1,000 unit Tablet 2000 UNIT PO (10:45)
[2021-07-20] MEDS: apixaban 5 mg Tablet PO ×2 (10:45→21:57)
[2021-07-20 11:54] LABS: Glucose Point of Care 150 mg/dL (70-110)
[2021-07-20] MEDS: acetaminophen 500 mg Tablet 1000 MG PO (13:39)
--- NOTE | 2021-07-20 14:04 | PM.PN ---
Subjective Subjective: Interval history: Seen this morning in ER room 7. Patient states he has been coughing and is feeling really really cold. He also wants to know when he will improve. He does not feel any better than when he first came to the hospital. He is also febrile overnight. Has no other complaints or concerns. He says his daughter's boyfriend first got Covid and then she got Covid and then the rest of the family got diagnosed with Covid. Patient is not vaccinated. Vitals/I&O/Wt Last Vital Signs Temp 103.3 F H 07/20/21 13:27 Pulse 89 07/20/21 13:27 Resp 20 H 07/20/21 13:27 BP 122/67 07/20/21 13:27 Pulse Ox 89 L 07/20/21 13:27 07/19/21 07/20/21 07/20/21 22:59 06:59 14:59 Intake Total 500 / 500 60 / 60 Output Total 900 / 900 Balance 500 / 500 -840 / -840 Weight last 48 hrs Weight 107.955 kg Physical Exam Narrative: EXAM NARRATIVE: General: Alert oriented x3, patient seen laying in position in bed in ED 7 slightly shivering and hugging his arms. Appears toxic and ill. On 5 L nasal cannula saturating 8990%. HEENT: Normocephalic, atraumatic, EOMI, Cardio: Regular rate rhythm, normal S1-S2, no murmurs Respiratory: Good bilateral air entry with coarse breath sounds at bases, no gross wheezes or crackles present. Normal respiratory effort, no intercostal retractions, no acute distress no sign of impending respiratory failure at this time. GI: Abdomen soft, nontender, nondistended, bowel sounds + Behavior: Appropriate and cooperative Extremities: Trace edema bilateral lower extremities no cyanosis Data : 07/20/21 05:48 07/20/21 05:48 Micro: Microbiology 07/20/21 07:30 MRSA Culture - Final Nose 07/19/21 19:41 Blood Culture - Preliminary Blood SPECIMEN COLLECTED 07/19/21 19:41 Blood Culture - Preliminary Blood SPECIMEN COLLECTED A&P Assessment and plan (1) COVID-19: With hypoxemia requiring oxygen therapy after as high as 6 L by nasal cannula thus far Status: Acute (2) Polycythemia vera: On hydroxyurea Status: Chronic (3) Chronic anticoagulation: On eliquis Status: Chronic (4) Atrial fibrillation: Currently in sinus rhythm on amiodarone and metoprolol Status: Chronic Qualifiers: Atrial fibrillation type: paroxysmal Qualified Code(s): I48.0 - Paroxysmal atrial fibrillation (5) Hyperglycemia: No histroy of diabetes, suspect related to recent steroid prescription Status: Acute (6) Benign prostatic hyperplasia: Chronically on Terazosin Status: Chronic Qualifiers: Lower urinary tract symptom presence: symptoms present Lower urinary tract symptom detail: straining on urination Qualified Code(s): N40.1 - Benign prostatic hyperplasia with lower urinary tract symptoms; R39.16 - Straining to void Additional A&P Information #Acute hypoxia secondary to COVID-19 pneumonia, no signs of respiratory failure #BPH #Atrial fibrillation #Polycythemia vera on hydroxyurea #Steroid-induced hyperglycemia. Initiate dexamethasone and remdesivir Oxygen therapy as needed to maintain saturations Respiratory therapy to follow DuoNeb every 4 hours D-dimer 0.91, carbonation 590, INR 1.53, Patient on Eliquis 5 mg twice daily for A. fib. I will still check CTA to rule out PE. He is requiring 5 L nasal cannula and saturating 89% to 90%. 1000 g Tylenol for fever. May also use ibuprofen if needed. Continue home hydroxyurea Continue home eliquis Continue home amiodarone and lower dose of metoprolol succinate only once a day rather than twice a day Continue home Terazosin Sliding scale insulin for hyperglycemia, check hemoglobin A1c Continue Protonix Vitamin C, vitamin D, zinc Full code DVT prophylaxis: Eliquis Diet regular diet. Attestations Medical Necessity Statement*: Greater than 48 to 72 hours of hospital stay considering patient's current status. 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
[2021-07-20 14:57] LABS: Coronavirus Test Green County Detected
--- NOTE | 2021-07-20 14:57 | CTR_ITS ---
PROCEDURE INFORMATION: Exam: CTA Chest With Contrast Exam date and time: 07/20/2021 2:57 PM Age: 71 years old Clinical indication: Shortness of breath; Patient HX: Covid+; Additional info: Rule out pe TECHNIQUE: Imaging protocol: Computed tomographic angiography of the chest with contrast. 3D rendering (Not supervised by radiologist): MIP and/or 3D reconstructed images were created by the technologist. Radiation optimization: All CT scans at this facility use at least one of these dose optimization techniques: automated exposure control; mA and/or kV adjustment per patient size (includes targeted exams where dose is matched to clinical indication); or iterative reconstruction. Contrast material: OMNI 350; Contrast volume: 95 ml; Contrast route: INTRAVENOUS (IV); COMPARISON: CR XR chest 1V portable [id number] 07/19/2021 2:13 PM RADIATION DOSE METRICS: Total DLP (mGy-cm): 623.54 FINDINGS: Pulmonary arteries: Dilated pulmonary arterial trunk up to 4.4 cm. No pulmonary emboli. Aorta: Unremarkable. No aortic aneurysm. No aortic dissection. Lungs: Patulous peripheral ground-glass opacities throughout both lungs. Pleural spaces: Unremarkable. No pneumothorax. No pleural effusion. Heart: Coronary artery calcifications noted. No cardiomegaly. Trace pericardial fluid. Lymph nodes: No enlarged lymph nodes. Spleen: The spleen is enlarged measuring up to 20 cm in length. Bones/joints: No acute fracture. Soft tissues: Unremarkable. CT/CT angio chest PE protcl [id number] IMPRESSION: 1. Negative for pulmonary embolism. 2. Patulous peripheral ground-glass opacities throughout both lungs consistent with known COVID pneumonia. 3. Dilated pulmonary arterial trunk which may be indicative of pulmonary hypertension in the appropriate clinical context. 4. Splenomegaly.
--- NOTE | 2021-07-20 15:17 | PC.NURSE ---
pt temperature is 103.1. previous temperature check i believe was i error due to patient drinking prior to my taking his temperature.
[2021-07-20] MEDS: ibuprofen 200 mg Tablet 400 MG PO (15:23)
[2021-07-20] MEDS: iohexol 350 mg/mL 100 mL Btl IV (15:59)
[2021-07-20 18:04] LABS: Glucose Point of Care 147 mg/dL (70-110)
[2021-07-20] MEDS: ipratropium-albuterol 3 mL Neb INHALATION ×2 (18:07→20:48)
--- NOTE | 2021-07-20 20:26 | PC.NURSE ---
Shift report received from Melody PINA. Patient in bed/ awake/watching TV. Denies pain or discomfort. Patient c/o of coughing. 4L NC. Telemetry applied at this time. No needs voiced at this time.
[2021-07-20 21:46] LABS: Glucose Point of Care 209 mg/dL (70-110)
[2021-07-20] MEDS: dexamethasone 4 mg/mL INJ 6 MG IVP (21:56)
[2021-07-20] MEDS: remdesivir 100 MG in sodium chloride 0.9% (100 ml) 100 ML IV (21:56)
[2021-07-20] MEDS: benzonatate 100 mg Capsule PO (21:57)
--- NOTE | 2021-07-20 22:18 | PC.NURSE ---
Education provided regarding insulin/blood sugars / illlness/ patient declines insulin at this time
[2021-07-21] VITALS (22 sets, daily range): BP systolic 85–134; BP diastolic 43–75; PULSE 60–111; RESP 16–31; TEMP 36.6–37.3; O2SAT 82–98
[2021-07-21] MEDS: ipratropium-albuterol 3 mL Neb INHALATION ×5 (04:28→20:30)
[2021-07-21 06:36] LABS: Basophils % 0.5 %; Hematocrit 47.1 % (42.0-52.0); Hemoglobin 16.4 g/dL (11.7-16.6); Lymphocytes # 0.1 10^3/uL (0.8-4.8); Lymphocytes % 2.2 %; Mean Corpuscular HGB Conc 34.8 g/dL (30.0-36.0); Mean Corpuscular Hemoglobin 38.3 pg (28.0-34.0); Mean Platelet Volume 11.1 fL (7.4-10.4); Monocytes # 0.1 10^3/uL (0.2-0.9); Monocytes % 1.1 %; Neutrophils # 6.08 10^3/uL (1.8-7.7); Neutrophils % 94.9 %; Nucleated Red Blood Cells % 0 %; Platelet Count 173 10^3/cmm (130-400); Red Blood Count 4.28 10^6/uL (4.1-5.3); Red Cell Distribution Width 14.3 % (12.1-15.1); White Blood Count 6.4 10^3/uL (4.0-10.0)
[2021-07-21 07:08] LABS: Glucose Point of Care 271 mg/dL (70-110)
[2021-07-21 07:10] LABS: Anion Gap 20.8 (5-19); Blood Urea Nitrogen 33 mg/dL (8-23); Calcium 7.9 mg/dL (8.5-10.5); Carbon Dioxide 20 mmol/L (22-29); Chloride 93 mmol/L (98-107); Glucose 237 mg/dL (65-115); Magnesium 2.1 mg/dL (1.7-2.3); Osmolality Calculated 285 mOsm/kg (285-295); Potassium 3.8 mmol/L (3.5-5.1); Sodium 130 mmol/L (136-145)
[2021-07-21] MEDS: apixaban 5 mg Tablet PO ×2 (09:39→20:29)
[2021-07-21] MEDS: cholecalciferol (vitamin D3) 1,000 unit Tablet 2000 UNIT PO (09:39)
[2021-07-21] MEDS: benzonatate 100 mg Capsule PO (09:40)
[2021-07-21] MEDS: zinc gluconate 50 mg Tablet PO (09:40)
[2021-07-21] MEDS: metoprolol succinate ER (24 HR) 25 mg Tablet 12.5 MG PO (09:40)
[2021-07-21] MEDS: ascorbic acid 500 mg Tablet 1000 MG PO ×2 (09:40→18:28)
[2021-07-21] MEDS: docusate sodium 100 mg Capsule PO ×2 (09:40→18:28)
[2021-07-21] MEDS: pantoprazole DR 40 mg Tablet PO (09:40)
[2021-07-21] MEDS: insulin lispro 100 unit/1 mL SUBCUT ×2 (09:41→13:08)
[2021-07-21] MEDS: amiodarone 200 mg Tablet 100 MG PO (09:41)
[2021-07-21] MEDS: hydroxyurea 500 mg Capsule 2000 MG PO (11:11)
[2021-07-21 11:35] LABS: Glucose Point of Care 291 mg/dL (70-110)
--- NOTE | 2021-07-21 16:29 | PC.NURSE ---
patient found with oxygen saturation of 70% ambulating in room, placed on 12L high flow nasal canula oxygen saturation 84%, RT in room with this nurse providing breathing treatment. Patient sitting up high in chair. Dr. Buck notified. RT obtaining ABG.
--- NOTE | 2021-07-21 16:29 | PC.NURSE ---
Nurse was notified about low oxygen level
--- NOTE | 2021-07-21 16:34 | PC.NURSE ---
New orders for patient to be placed on bipap from Dr. Buck, RT aware and obtaining BIPAP. patient in agreement.
[2021-07-21 16:37] LABS: ABG PCO2 28.7 mmHg (35-45); ABG PH Result 7.51 (7.35-7.45); Alveolar-Arterial Oxygen Gradi 8.7 mmHg (5-10); Arterial Blood Gas Hematocrit 54.2 % (42-52); Base Excess ABG 1.5 mmol/L (-2.0-2.0); Blood Gas Allen Test Pos; Blood Gas Sample Type Arterial; Carboxyhemoglobin 1.3 %THgb (0.4-20.1); HGB O2 Sat 84.9 % (95-100); Ionized Calcium Level - ABG 1.2 mmol/L (1.1-1.4); Methemoglobin 0.3 % (0.4-1.5); Oxygen Saturation ABG 86.3; PO2 ABG 44.6 mmHg (80.0-100.0); Potassium Level - ABG 4.1 mmol/L (3.5-5.0); Total Hemoglobin 17.7 g/dL (14-18)
[2021-07-21 16:39] LABS: Blood Gas Operator Identificat MONRO; Blood Gas Sample Site Radial, left; Oxygen Device NC
[2021-07-21 17:16] LABS: Glucose Point of Care 138 mg/dL (70-110)
--- NOTE | 2021-07-21 17:18 | PC.NURSE ---
Report called and given to ICU nurse.
[2021-07-21] MEDS: tocilizumab 800 MG in sodium chloride 0.9% (100 ml) 100 ML 100 MG IV (18:28)
--- NOTE | 2021-07-21 19:14 | PM.PN ---
Subjective Subjective: Interval history: Seen this morning. He is still on 5 L nasal cannula. Patient does not feel any better compared to yesterday. He still toxic appearing and is short of breath if he tries to exert himself or move. He would like to know when he is going to get better. Febrile up until yesterday evening but afebrile overnight. He did receive Tylenol and ibuprofen yesterday for his fever. Vitals/I&O/Wt Last Vital Signs Temp 98.2 F 07/21/21 12:00 Pulse 104 H 07/21/21 16:40 Resp 24 H 07/21/21 16:40 BP 121/72 07/21/21 16:00 Pulse Ox 90 07/21/21 16:40 07/21/21 07/21/21 07/21/21 06:59 14:59 22:59 Intake Total 700 / 700 120 / 820 Output Total 1025 / 1925 500 / 500 Balance -1025 / -1865 200 / 200 120 / 320 Weight last 48 hrs Weight 107.32 kg Physical Exam Narrative: EXAM NARRATIVE: General: Alert oriented x3, patient seen laying in bed. HEENT: Normocephalic, atraumatic, EOMI, on 5 L nasal cannula. Cardio: Regular rate rhythm, normal S1-S2, no murmurs Respiratory: Good bilateral air entry with coarse breath sounds at bases, no gross wheezes or crackles present. Normal respiratory effort, no intercostal retractions, no acute distress no sign of impending respiratory failure at this time. GI: Abdomen soft, nontender, nondistended, bowel sounds + Behavior: Appropriate and cooperative Extremities: Trace edema bilateral lower extremities no cyanosis Data : 07/21/21 05:28 07/21/21 05:28 Micro: Microbiology 07/19/21 19:41 Blood Culture - Preliminary Blood NEGATIVE TO DATE 07/19/21 19:41 Blood Culture - Preliminary Blood NEGATIVE TO DATE A&P Assessment and plan (1) COVID-19: With hypoxemia requiring oxygen therapy after as high as 6 L by nasal cannula thus far Status: Acute (2) Polycythemia vera: On hydroxyurea Status: Chronic (3) Chronic anticoagulation: On eliquis Status: Chronic (4) Atrial fibrillation: Currently in sinus rhythm on amiodarone and metoprolol Status: Chronic Qualifiers: Atrial fibrillation type: paroxysmal Qualified Code(s): I48.0 - Paroxysmal atrial fibrillation (5) Hyperglycemia: No histroy of diabetes, suspect related to recent steroid prescription Status: Acute (6) Benign prostatic hyperplasia: Chronically on Terazosin Status: Chronic Qualifiers: Lower urinary tract symptom presence: symptoms present Lower urinary tract symptom detail: straining on urination Qualified Code(s): N40.1 - Benign prostatic hyperplasia with lower urinary tract symptoms; R39.16 - Straining to void Additional A&P Information #Acute hypoxia secondary to COVID-19 pneumonia, no signs of respiratory failure #BPH #Atrial fibrillation?rate controlled. #Polycythemia vera on hydroxyurea #Steroid-induced hyperglycemia. Continue dexamethasone remdesivir. Continue oxygen as needed to maintain saturations. May escalate to heated high flow versus BiPAP. Respiratory therapy on board. DuoNeb every 4 hours. Oxygen therapy as needed to maintain saturations D-dimer 0.91, ferritin 590, INR 1.53, Patient on Eliquis 5 mg twice daily for A. fib. CTA ruled out PE. 1000 g Tylenol for fever. May also use ibuprofen if needed. Continue home hydroxyurea Continue home eliquis Continue home amiodarone and continue toprol 25 mg a day. Continue home Terazosin Sliding scale insulin for hyperglycemia, Continue Protonix Vitamin C, vitamin D, zinc Patient desaturated down to 70s in the evening today. He was placed on heated high flow. He was saturating 84% on 4 L nasal cannula. He was then transition to heated high flow. He will be transferred to the ICU. I discussed with regarding potential need for intubation in the next 24 to 48 hours if patient does not improve. Family aware. ?I have also ordered Actemra dose x1 for the patient. ?If patient does not improve and does poorly we might have to intubate and proned the patient. We will continue to monitor closely in ICU. Full code DVT prophylaxis: Eliquis Diet regular diet. 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
[2021-07-21] MEDS: dexamethasone 4 mg/mL INJ 6 MG IVP (20:30)
[2021-07-21] MEDS: remdesivir 100 MG in sodium chloride 0.9% (100 ml) 100 ML IV (20:30)
[2021-07-21 20:34] LABS: Glucose Point of Care 132 mg/dL (70-110)
[2021-07-21] MEDS: metoprolol succinate ER (24 HR) 25 mg Tablet PO (21:37)
[2021-07-22] VITALS (31 sets, daily range): BP systolic 92–153; BP diastolic 43–94; PULSE 61–100; RESP 16–39; TEMP 37.2–37.3; O2SAT 86–95
[2021-07-22] MEDS: ipratropium-albuterol 3 mL Neb INHALATION ×7 (03:23→23:21)
[2021-07-22 04:24] LABS: Basophils % 0.4 %; Hematocrit 45.6 % (42.0-52.0); Hemoglobin 15.8 g/dL (11.7-16.6); Lymphocytes # 0.3 10^3/uL (0.8-4.8); Lymphocytes % 3.7 %; Mean Corpuscular HGB Conc 34.6 g/dL (30.0-36.0); Mean Corpuscular Hemoglobin 37.7 pg (28.0-34.0); Mean Corpuscular Volume 108.8 fl (80-94); Mean Platelet Volume 10.2 fL (7.4-10.4); Monocytes # 0.1 10^3/uL (0.2-0.9); Monocytes % 1.2 %; Neutrophils # 6.16 10^3/uL (1.8-7.7); Neutrophils % 90.4 %; Nucleated Red Blood Cells % 0 %; Platelet Count 174 10^3/cmm (130-400); Red Blood Count 4.19 10^6/uL (4.1-5.3); Red Cell Distribution Width 14.2 % (12.1-15.1); White Blood Count 6.8 10^3/uL (4.0-10.0)
[2021-07-22 04:48] LABS: Blood Urea Nitrogen 21 mg/dL (8-23); C Reactive Protein 75.4 mg/L (0.0-4.9); Calcium 7.9 mg/dL (8.5-10.5); Carbon Dioxide 20 mmol/L (22-29); Chloride 96 mmol/L (98-107); Glucose 210 mg/dL (65-115); Magnesium 2.1 mg/dL (1.7-2.3); Osmolality Calculated 279 mOsm/kg (285-295); Sodium 130 mmol/L (136-145)
[2021-07-22 07:45] LABS: Glucose Point of Care 213 mg/dL (70-110)
[2021-07-22] MEDS: insulin lispro 100 unit/1 mL SUBCUT ×4 (08:58→22:13)
[2021-07-22] MEDS: apixaban 5 mg Tablet PO ×2 (08:59→22:12)
[2021-07-22] MEDS: cholecalciferol (vitamin D3) 1,000 unit Tablet 2000 UNIT PO (08:59)
[2021-07-22] MEDS: zinc gluconate 50 mg Tablet PO (08:59)
[2021-07-22] MEDS: ascorbic acid 500 mg Tablet 1000 MG PO ×2 (08:59→17:20)
[2021-07-22] MEDS: amiodarone 200 mg Tablet 100 MG PO (08:59)
[2021-07-22] MEDS: docusate sodium 100 mg Capsule PO ×2 (09:00→17:20)
[2021-07-22] MEDS: benzonatate 100 mg Capsule PO (09:00)
[2021-07-22] MEDS: pantoprazole DR 40 mg Tablet PO (09:00)
[2021-07-22] MEDS: hydroxyurea 500 mg Capsule 2000 MG PO (09:13)
[2021-07-22 12:29] LABS: Glucose Point of Care 230 mg/dL (70-110)
--- NOTE | 2021-07-22 14:51 | P.PN_ITS ---
Subjective Subjective: Interval history: Seen this morning. Patient is sitting up in the recliner appearing comfortable on heated high flow nasal cannula. He appears a little bit anxious. Saturating 90%. He states he tried sleeping in prone position last night. Offers no other complaints right now. Vitals/I&O/Wt Last Vital Signs Temp 99.2 F 07/22/21 04:00 Pulse 85 07/22/21 14:00 Resp 19 H 07/22/21 13:00 BP 114/65 07/22/21 13:00 Pulse Ox 87 L 07/22/21 13:00 07/21/21 07/22/21 07/22/21 22:59 06:59 14:59 Intake Total 370 / 1070 270 / 1340 500 / 500 Output Total 150 / 650 1100 / 1750 800 / 800 Balance 220 / 420 -830 / -410 -300 / -300 Weight last 48 hrs Weight 107.32 kg Physical Exam Narrative: EXAM NARRATIVE: General: Alert oriented x3, patient seen laying in bed. HEENT: Normocephalic, atraumatic, EOMI, on 5 L nasal cannula. Cardio: Regular rate rhythm, normal S1-S2, no murmurs Respiratory: Good bilateral air entry with coarse breath sounds at bases, no gross wheezes or crackles present. Normal respiratory effort, no intercostal retractions, no acute distress no sign of impending respiratory failure at this time. GI: Abdomen soft, nontender, nondistended, bowel sounds + Behavior: Appropriate and cooperative Extremities: Trace edema bilateral lower extremities no cyanosis Data : 07/22/21 03:49 07/22/21 03:49 A&P Assessment and plan (1) COVID-19: Status: Acute (2) Polycythemia vera: On hydroxyurea Status: Chronic (3) Chronic anticoagulation: Status: Chronic (4) Atrial fibrillation: Status: Chronic Qualifiers: Atrial fibrillation type: paroxysmal Qualified Code(s): I48.0 - Paroxysmal atrial fibrillation (5) Hyperglycemia: Status: Acute (6) Benign prostatic hyperplasia: Chronically on Terazosin Status: Chronic Qualifiers: Lower urinary tract symptom presence: symptoms present Lower urinary tract symptom detail: straining on urination Qualified Code(s): N40.1 - Benign prostatic hyperplasia with lower urinary tract symptoms; R39.16 - Straining to void Additional A&P Information #Acute hypoxia secondary to COVID-19 pneumonia, no signs of respiratory failure #BPH #Atrial fibrillation?rate controlled. #Polycythemia vera on hydroxyurea #Steroid-induced hyperglycemia. Continue dexamethasone remdesivir. s/p actemra 07/21. Continue oxygen as needed to maintain saturations. ON heated high flow now. Respiratory therapy on board. DuoNeb every 4 hours. Oxygen therapy as needed to maintain saturations D-dimer 0.91, ferritin 590, INR 1.53, Patient on Eliquis 5 mg twice daily for A. fib. CTA ruled out PE. 1000 g Tylenol for fever. May also use ibuprofen if needed. Continue home hydroxyurea Continue home eliquis Continue home amiodarone and continue toprol 25 mg a day. Continue home Terazosin Sliding scale insulin for hyperglycemia, Continue Protonix Vitamin C, vitamin D, zinc COntinue on HHF. If needed he might require intubation, proning. Plan has been discussed with the pt. also updated 07/21 Continue to monitor in ICU Full code DVT prophylaxis: Eliquis Diet regular diet. 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
[2021-07-22] MEDS: guaiFENesin-dextromethorphan UDC 10 mL 5 ML PO (17:04)
[2021-07-22 17:13] LABS: Glucose Point of Care 205 mg/dL (70-110)
[2021-07-22] MEDS: remdesivir 100 MG in sodium chloride 0.9% (100 ml) 100 ML IV (17:20)
[2021-07-22 21:23] LABS: Glucose Point of Care 237 mg/dL (70-110)
[2021-07-22] MEDS: metoprolol succinate ER (24 HR) 25 mg Tablet PO (22:12)
[2021-07-22] MEDS: dexamethasone 4 mg/mL INJ 6 MG IVP (22:13)
[2021-07-23] VITALS (39 sets, daily range): BP systolic 98–138; BP diastolic 51–80; PULSE 64–91; RESP 16–33; TEMP 36.2–37.3; O2SAT 83–94
[2021-07-23] MEDS: ipratropium-albuterol 3 mL Neb INHALATION ×6 (03:31→23:27)
[2021-07-23 03:44] LABS: ABG PCO2 32.6 mmHg (35-45); ABG PH Result 7.51 (7.35-7.45); Alveolar-Arterial Oxygen Gradi 41.6 mmHg (5-10); Arterial Blood Gas Hematocrit 48.1 % (42-52); Base Excess ABG 3.5 mmol/L (-2.0-2.0); Blood Gas Allen Test Pos; Blood Gas Sample Site Radial, right; Blood Gas Sample Type Arterial; Carboxyhemoglobin 1.2 %THgb (0.4-20.1); Ionized Calcium Level - ABG 1.2 mmol/L (1.1-1.4); Methemoglobin 0.8 % (0.4-1.5); Oxygen Device NC; Potassium Level - ABG 4.2 mmol/L (3.5-5.0); Total Hemoglobin 15.7 g/dL (14-18)
[2021-07-23 06:09] LABS: Basophils % 0.5 %; Hematocrit 43.1 % (42.0-52.0); Hemoglobin 14.9 g/dL (11.7-16.6); Lymphocytes # 0.1 10^3/uL (0.8-4.8); Lymphocytes % 1.4 %; Mean Corpuscular HGB Conc 34.6 g/dL (30.0-36.0); Mean Corpuscular Hemoglobin 38.2 pg (28.0-34.0); Mean Corpuscular Volume 110.5 fl (80-94); Mean Platelet Volume 11.1 fL (7.4-10.4); Monocytes # 0.1 10^3/uL (0.2-0.9); Monocytes % 1.6 %; Neutrophils # 6.08 10^3/uL (1.8-7.7); Neutrophils % 95.1 %; Nucleated Red Blood Cells % 0 %; Platelet Count 203 10^3/cmm (130-400); Red Cell Distribution Width 14.4 % (12.1-15.1); White Blood Count 6.4 10^3/uL (4.0-10.0)
[2021-07-23 06:34] LABS: Anion Gap 16.1 (5-19); Blood Urea Nitrogen 21 mg/dL (8-23); Calcium 7.7 mg/dL (8.5-10.5); Carbon Dioxide 22 mmol/L (22-29); Chloride 95 mmol/L (98-107); Glucose 202 mg/dL (65-115); Magnesium 1.9 mg/dL (1.7-2.3); Osmolality Calculated 277 mOsm/kg (285-295); Potassium 4.1 mmol/L (3.5-5.1); Sodium 129 mmol/L (136-145)
[2021-07-23 07:46] LABS: Slide Review Slide Review Perform
[2021-07-23 08:42] LABS: Glucose Point of Care 166 mg/dL (70-110)
[2021-07-23] MEDS: zinc gluconate 50 mg Tablet PO (09:05)
[2021-07-23] MEDS: ascorbic acid 500 mg Tablet 1000 MG PO ×2 (09:05→18:29)
[2021-07-23] MEDS: docusate sodium 100 mg Capsule PO ×2 (09:05→18:29)
[2021-07-23] MEDS: cholecalciferol (vitamin D3) 1,000 unit Tablet 2000 UNIT PO (09:05)
[2021-07-23] MEDS: pantoprazole DR 40 mg Tablet PO (09:05)
[2021-07-23] MEDS: amiodarone 200 mg Tablet 100 MG PO (09:05)
[2021-07-23] MEDS: apixaban 5 mg Tablet PO ×2 (09:06→22:25)
[2021-07-23] MEDS: hydroxyurea 500 mg Capsule 2000 MG PO (09:06)
[2021-07-23] MEDS: insulin lispro 100 unit/1 mL SUBCUT ×4 (09:08→22:21)
--- NOTE | 2021-07-23 10:45 | PC.SOCIAL ---
IMM update IMM updated with patient's via telephone. She verbalized an understanding. Initialled, dated, timed, and placed in chart.
[2021-07-23] MEDS: phenol oral Spray 177 mL 3 SPRAY MUCOUS MEM (11:28)
[2021-07-23 11:53] LABS: Glucose Point of Care 207 mg/dL (70-110)
--- NOTE | 2021-07-23 14:22 | PM.PN ---
Subjective Subjective: Interval history: Seen this morning. He is on heated high flow 45 L 60% FiO2. He states he feels a little bit better compared to before and would like to go home. He denies having any anxiety. He did try to self proning last night but was not very successful and and stop sleeping on his side. He feels constipated. Vitals/I&O/Wt Last Vital Signs Temp 99 F 07/23/21 04:00 Pulse 79 07/23/21 13:30 Resp 23 H 07/23/21 13:30 BP 127/80 07/23/21 08:30 Pulse Ox 92 07/23/21 13:30 07/22/21 07/23/21 07/23/21 22:59 06:59 14:59 Intake Total 1100 / 1600 350 / 1950 340 / 340 Output Total 700 / 1500 980 / 2480 500 / 500 Balance 400 / 100 -630 / -530 -160 / -160 Physical Exam Narrative: EXAM NARRATIVE: General: Alert oriented x3, patient seen sitting up in recliner appearing comfortable on heated high flow. HEENT: Normocephalic, atraumatic, EOMI, Cardio: Regular rate rhythm, normal S1-S2, no murmurs Respiratory: Good bilateral air entry with coarse breath sounds at bases, no gross wheezes or crackles present. Normal respiratory effort, no intercostal retractions, no acute distress no sign of impending respiratory failure at this time. Physical exam unchanged compared to prior day. GI: Abdomen soft, nontender, nondistended, bowel sounds + Behavior: Appropriate and cooperative Extremities: Trace edema bilateral lower extremities no cyanosis Data : 07/23/21 04:50 07/23/21 04:50 A&P Assessment and plan (1) COVID-19: Status: Acute (2) Polycythemia vera: On hydroxyurea Status: Chronic (3) Chronic anticoagulation: Status: Chronic (4) Atrial fibrillation: Status: Chronic Qualifiers: Atrial fibrillation type: paroxysmal Qualified Code(s): I48.0 - Paroxysmal atrial fibrillation (5) Hyperglycemia: Status: Acute (6) Benign prostatic hyperplasia: Chronically on Terazosin Status: Chronic Qualifiers: Lower urinary tract symptom presence: symptoms present Lower urinary tract symptom detail: straining on urination Qualified Code(s): N40.1 - Benign prostatic hyperplasia with lower urinary tract symptoms; R39.16 - Straining to void Additional A&P Information #Acute hypoxia secondary to COVID-19 pneumonia, no signs of respiratory failure #BPH #Atrial fibrillation?rate controlled. #Polycythemia vera on hydroxyurea #Steroid-induced hyperglycemia. Continue dexamethasone remdesivir. s/p actemra 07/21. Continue oxygen as needed to maintain saturations. ON heated high flow now. Respiratory therapy on board. DuoNeb every 4 hours. Oxygen therapy as needed to maintain saturations D-dimer 0.91, ferritin 590, INR 1.53, Patient on Eliquis 5 mg twice daily for A. fib. CTA ruled out PE. 1000 g Tylenol for fever. May also use ibuprofen if needed. Continue home hydroxyurea Continue home eliquis Continue home amiodarone and continue toprol 25 mg a day. Continue home Terazosin Sliding scale insulin for hyperglycemia, Continue Protonix Vitamin C, vitamin D, zinc COntinue on HHF. If needed he might require intubation, proning. Plan has been discussed with the pt. also updated 07/21 Continue to monitor in ICU -We will add lactulose for constipation Full code DVT prophylaxis: Eliquis Diet regular diet. 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
[2021-07-23 17:31] LABS: Glucose Point of Care 167 mg/dL (70-110)
[2021-07-23] MEDS: remdesivir 100 MG in sodium chloride 0.9% (100 ml) 100 ML IV (18:30)
[2021-07-23 21:15] LABS: Glucose Point of Care 151 mg/dL (70-110)
[2021-07-23] MEDS: metoprolol succinate ER (24 HR) 25 mg Tablet PO (21:16)
[2021-07-24] VITALS (35 sets, daily range): BP systolic 98–119; BP diastolic 53–83; PULSE 62–89; RESP 2–43; TEMP 36.6–37; O2SAT 82–95
[2021-07-24] MEDS: dexamethasone 4 mg/mL INJ 6 MG IVP ×2 (00:31→21:11)
[2021-07-24] MEDS: ipratropium-albuterol 3 mL Neb INHALATION ×6 (03:16→23:59)
[2021-07-24 03:25] LABS: Basophils % 0.5 %; Eosinophils # 0.1 10^3/uL (0.0-0.8); Eosinophils % 1.3 %; Hematocrit 44.6 % (42.0-52.0); Hemoglobin 15.4 g/dL (11.7-16.6); Lymphocytes # 0.3 10^3/uL (0.8-4.8); Lymphocytes % 4.5 %; Mean Corpuscular HGB Conc 34.5 g/dL (30.0-36.0); Mean Corpuscular Volume 110.1 fl (80-94); Mean Platelet Volume 11.3 fL (7.4-10.4); Monocytes # 0.1 10^3/uL (0.2-0.9); Monocytes % 1.7 %; Neutrophils # 5.42 10^3/uL (1.8-7.7); Neutrophils % 90.8 %; Nucleated Red Blood Cells % 0 %; Platelet Count 214 10^3/cmm (130-400); Red Blood Count 4.05 10^6/uL (4.1-5.3); Red Cell Distribution Width 14.6 % (12.1-15.1)
[2021-07-24 03:32] LABS: ABG PCO2 38.1 mmHg (35-45); ABG PH Result 7.48 (7.35-7.45); Alveolar-Arterial Oxygen Gradi 47.5 mmHg (5-10); Arterial Blood Gas Hematocrit 48.6 % (42-52); Base Excess ABG 4.6 mmol/L (-2.0-2.0); Blood Gas Allen Test Pos; Blood Gas Sample Site Radial, right; Blood Gas Sample Type Arterial; Carboxyhemoglobin 1.5 %THgb (0.4-20.1); HCO3 ABG 28.3 mmol/L (22-26); HGB O2 Sat 89.1 % (95-100); Ionized Calcium Level - ABG 1.2 mmol/L (1.1-1.4); Methemoglobin 0.6 % (0.4-1.5); Oxygen Device NC; Oxygen Saturation ABG 90.9; Potassium Level - ABG 4.2 mmol/L (3.5-5.0); Total Hemoglobin 15.9 g/dL (14-18)
[2021-07-24 03:41] LABS: Anion Gap 11.3 (5-19); Blood Urea Nitrogen 20 mg/dL (8-23); Calcium 7.8 mg/dL (8.5-10.5); Carbon Dioxide 25 mmol/L (22-29); Chloride 97 mmol/L (98-107); Glucose 126 mg/dL (65-115); Magnesium 1.9 mg/dL (1.7-2.3); Osmolality Calculated 272 mOsm/kg (285-295); Potassium 4.3 mmol/L (3.5-5.1); Sodium 129 mmol/L (136-145)
[2021-07-24] MEDS: docusate sodium 100 mg Capsule PO ×2 (09:55→17:09)
[2021-07-24] MEDS: zinc gluconate 50 mg Tablet PO (09:55)
[2021-07-24] MEDS: amiodarone 200 mg Tablet 100 MG PO (09:55)
[2021-07-24] MEDS: pantoprazole DR 40 mg Tablet PO (09:57)
[2021-07-24] MEDS: cholecalciferol (vitamin D3) 1,000 unit Tablet 2000 UNIT PO (09:57)
[2021-07-24] MEDS: hydroxyurea 500 mg Capsule 2000 MG PO (09:57)
[2021-07-24] MEDS: ascorbic acid 500 mg Tablet 1000 MG PO ×2 (09:57→17:10)
[2021-07-24] MEDS: apixaban 5 mg Tablet PO ×2 (09:57→21:11)
--- NOTE | 2021-07-24 10:32 | PC.CHAP ---
Pastoral Care Encounter/Spiritual Assessment Type of Contact [] Declined hotel or motel receptionist visit [] Patient/Family/Request visit [] Outpatient visit [] Follow-up visit [] Physician referral [] Code/Alert [x] Routine visit [] Staff referral [] Actively dying [] Patient sleeping [] Family support [] [] Out of room [] Palliative care [] [x] Receiving care in room [] Pre-surgical visit [] Trauma [] Long length of stay [x] ICU visit [x] Other: covid Relational/Emotional Strength [] Patient feels connected with others/family/visitors/staff [] Distress [] Loneliness/isolation [] Abandonment Spirituality of Patient [] Person of Linda [] Attends Pentecostal of their [place] [] Believes in Prayer [] Reads Bible or Buddhism materials [] There are Spiritual issues to be addressed Case Supervisor Interventions [x] Prayer [] Active listening [] Non-anxious presence [] Spiritual/emotional support [] Crisis/trauma care [] Spiritual counseling [] Bereavement support [] Provided bereavement packet [] Provided Bible/devotional materials [] Provided toy/stuffed animal, coloring book to patient or family member [] Provided Communion [] Anointing/[place] [] Salvation [x] Completed spiritual assessment [] Other: Impact on Illness or Injury [] Angry [] Fearful [] Anxious [] Often cries [] Exhaustion [] Unable to work [] Unable to attend hoahaoism [] Unable to walk/stand [] Unable to read [] Unable to drive [] Unable to eat/drink [] Unable to sleep [] Unable to be with family [] Patient intubated [] Other: Summary Time spent with patient
[2021-07-24 10:42] LABS: Glucose Point of Care 115 mg/dL (70-110)
[2021-07-24 11:55] LABS: Glucose Point of Care 125 mg/dL (70-110)
--- NOTE | 2021-07-24 16:10 | PM.PN ---
Subjective Subjective: Interval history: This morning I encourage patient to start proning himself currently he is on 45 L 65% PO2 54, at the time my evaluation he was saturating 91% No conversational dyspnea he was talking with his family Hyponatremia noted Clinically looks dehydrated I would like to give him normal saline for next 10 hours and then discontinue to avoid fluid overloaded state Afebrile Fluid balance He is on Eliquis Status post Actemra Vitals/I&O/Wt Last Vital Signs Temp 98.5 F 07/24/21 14:00 Pulse 83 07/24/21 15:54 Resp 18 07/24/21 15:53 BP 102/83 07/24/21 14:00 Pulse Ox 89 L 07/24/21 15:53 07/24/21 07/24/21 07/24/21 06:59 14:59 22:59 Intake Total 200 / 200 Output Total 400 / 1200 800 / 800 700 / 1500 Balance -400 / -140 -600 / -600 -700 / -1300 Physical Exam Narrative: EXAM NARRATIVE: Patient was sitting comfortably talking with his family over the phone however clinically looks very dry dry cracked lips 45 L 65% heated high flow Rhonchi with crepitation noted all over posterior lung zones S1, S2 sinus rhythm Abdomen soft Lower symmetry no edema EOMI, PERRLA Nonfocal neuro exam Data : 07/24/21 02:49 07/24/21 02:49 A&P Assessment and plan (1) Benign prostatic hyperplasia: Status: Chronic Qualifiers: Lower urinary tract symptom presence: symptoms present Lower urinary tract symptom detail: straining on urination Qualified Code(s): N40.1 - Benign prostatic hyperplasia with lower urinary tract symptoms; R39.16 - Straining to void (2) Hyperglycemia: Status: Acute (3) Chronic anticoagulation: Status: Chronic (4) Polycythemia vera: Status: Chronic (5) Atrial fibrillation: Status: Chronic Qualifiers: Atrial fibrillation type: paroxysmal Qualified Code(s): I48.0 - Paroxysmal atrial fibrillation (6) COVID-19: Status: Acute Additional A&P Information Persistent hypoxia related to COVID-19 Status post Actemra, continue IV steroids and Decadron 45 L, 65% Encourage proning, ambulation out of bed to chair, in case of further worsening would recommend BiPAP, high risk for intubation Would like to see if proning would help to increase his oxygenation Repeat blood gas in the morning He does have rhonchi with crepitation Continue Eliquis Encourage proning, incentive spirometer, flutter valve, A. 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
[2021-07-24] MEDS: sodium chloride 0.9% 1,000 ML 100 ML IV (17:17)
[2021-07-24 19:20] LABS: Glucose Point of Care 109 mg/dL (70-110)
--- NOTE | 2021-07-24 19:20 | PC.NURSE ---
SHift Summary: Overall, uneventful shift. Patient was up to a chair throughout the day. Would frequently stand and walk in place as well as use the IS and acapella. Patient heated high flow requirements reduced from 65% and 45 L to 60% and 40L. Urine output was 1500mL.
[2021-07-24] MEDS: metoprolol succinate ER (24 HR) 25 mg Tablet PO (21:11)
[2021-07-24 23:36] LABS: Glucose Point of Care 111 mg/dL (70-110)
[2021-07-25] VITALS (38 sets, daily range): BP systolic 92–135; BP diastolic 59–79; PULSE 70–97; RESP 16–40; TEMP 36.6–37.3; O2SAT 84–96
[2021-07-25] MEDS: ipratropium-albuterol 3 mL Neb INHALATION ×6 (03:24→23:00)
[2021-07-25] MEDS: sodium chloride 0.9% 1,000 ML 100 ML IV ×2 (03:38→15:34)
[2021-07-25 03:39] LABS: ABG PCO2 37.8 mmHg (35-45); ABG PH Result 7.46 (7.35-7.45); Arterial Blood Gas Hematocrit 49.8 % (42-52); Blood Gas Allen Test Pos; Blood Gas Sample Site Radial, right; Blood Gas Sample Type Arterial; HCO3 ABG 26.8 mmol/L (22-26); Oxygen Device NC; PO2 ABG 60.3 mmHg (80.0-100.0)
[2021-07-25 05:08] LABS: Basophils % 0.3 %; Eosinophils % 0.3 %; Hematocrit 45.9 % (42.0-52.0); Hemoglobin 15.9 g/dL (11.7-16.6); Lymphocytes # 0.2 10^3/uL (0.8-4.8); Lymphocytes % 2.7 %; Mean Corpuscular HGB Conc 34.6 g/dL (30.0-36.0); Mean Corpuscular Hemoglobin 38.1 pg (28.0-34.0); Mean Corpuscular Volume 110.1 fl (80-94); Mean Platelet Volume 11.4 fL (7.4-10.4); Monocytes # 0.1 10^3/uL (0.2-0.9); Monocytes % 1.1 %; Neutrophils # 5.96 10^3/uL (1.8-7.7); Neutrophils % 93.7 %; Nucleated Red Blood Cells % 0 %; Platelet Count 227 10^3/cmm (130-400); Red Blood Count 4.17 10^6/uL (4.1-5.3); Red Cell Distribution Width 14.7 % (12.1-15.1); White Blood Count 6.4 10^3/uL (4.0-10.0)
[2021-07-25 05:39] LABS: Anion Gap 17.6 (5-19); Blood Urea Nitrogen 17 mg/dL (8-23); Calcium 7.8 mg/dL (8.5-10.5); Carbon Dioxide 21 mmol/L (22-29); Chloride 98 mmol/L (98-107); Glucose 170 mg/dL (65-115); Osmolality Calculated 280 mOsm/kg (285-295); Potassium 4.6 mmol/L (3.5-5.1); Sodium 132 mmol/L (136-145)
[2021-07-25 07:52] LABS: Glucose Point of Care 140 mg/dL (70-110)
[2021-07-25] MEDS: zinc gluconate 50 mg Tablet PO (08:02)
[2021-07-25] MEDS: docusate sodium 100 mg Capsule PO ×2 (08:02→17:46)
[2021-07-25] MEDS: pantoprazole DR 40 mg Tablet PO (08:02)
[2021-07-25] MEDS: ascorbic acid 500 mg Tablet 1000 MG PO ×2 (08:02→17:46)
[2021-07-25] MEDS: cholecalciferol (vitamin D3) 1,000 unit Tablet 2000 UNIT PO (08:02)
[2021-07-25] MEDS: apixaban 5 mg Tablet PO ×2 (08:02→20:14)
[2021-07-25] MEDS: amiodarone 200 mg Tablet 100 MG PO (08:03)
[2021-07-25] MEDS: hydroxyurea 500 mg Capsule 2000 MG PO (10:14)
[2021-07-25 12:25] LABS: Glucose Point of Care 159 mg/dL (70-110)
[2021-07-25] MEDS: insulin lispro 100 unit/1 mL SUBCUT ×3 (12:44→20:24)
[2021-07-25] MEDS: lanolin oint 7 gm 1 APPLIC TOPICAL (16:31)
--- NOTE | 2021-07-25 17:10 | PM.PN ---
Subjective Subjective: Interval history: Adequate urine output Patient had 1 bowel movement Afebrile No leukocytosis Patient did try proning yesterday ABG showed improvement in PaO2 However still on heated high flow 45 L 65% Vitals/I&O/Wt Last Vital Signs Temp 98.3 F 07/25/21 13:00 Pulse 70 07/25/21 16:02 Resp 22 H 07/25/21 16:00 BP 119/61 07/25/21 15:00 Pulse Ox 95 07/25/21 16:00 07/25/21 07/25/21 07/25/21 06:59 14:59 22:59 Intake Total 1000 / 2380 2780 / 2780 Output Total 1750 / 4050 750 / 750 Balance -750 / -1670 2029 Physical Exam Narrative: EXAM NARRATIVE: Sitting at the bedside No conversational dyspnea Heated high flow Bilateral rhonchi Abdomen soft with bowel sound S1, S2 Clinically looks dehydrated No signs of edema EOMI, PERRLA Nonfocal neuro exam Data : 07/25/21 04:30 07/25/21 04:30 Micro: Microbiology 07/19/21 19:41 Blood Culture - Final Blood NO GROWTH AFTER 5 DAYS 07/19/21 19:41 Blood Culture - Final Blood NO GROWTH AFTER 5 DAYS A&P Assessment and plan (1) Benign prostatic hyperplasia: Status: Chronic Qualifiers: Lower urinary tract symptom presence: symptoms present Lower urinary tract symptom detail: straining on urination Qualified Code(s): N40.1 - Benign prostatic hyperplasia with lower urinary tract symptoms; R39.16 - Straining to void (2) Hyperglycemia: Status: Acute (3) Chronic anticoagulation: Status: Chronic (4) Polycythemia vera: Status: Chronic (5) Atrial fibrillation: Status: Chronic Qualifiers: Atrial fibrillation type: paroxysmal Qualified Code(s): I48.0 - Paroxysmal atrial fibrillation (6) COVID-19: Status: Acute Additional A&P Information Acute hypoxia related to COVID-19 Heated high flow 45 L, 65% PaO2 did show improvement with proning Keep him in ICU for today Continue Eliquis, No signs of fever or worsening leukocytosis, he has been getting out of bed to chair Flutter valve A. fib without RVR continue AV adalberto blocking agent Hyponatremia: Improved with IV fluid hydration Change diet to consistent carb Full code DVT prophylaxis covered with Eliquis Attestations Medical Necessity Statement*: Can be transferred out of ICU if needed night Time Spent in Patient Care: 16 - 35 minutes Coding Level of Care Code Acute Bag Repairer for g Fwd Diagnoses Benign prostatic hyperplasia N40.1; R39.16 Lower urinary tract symptom presence: symptoms present Lower urinary tract symptom detail: straining on urination Hyperglycemia R73.9 Chronic anticoagulation Z79.01 Polycythemia vera D45 Atrial fibrillation I48.0 Atrial fibrillation type: paroxysmal COVID-19 U07.1
--- NOTE | 2021-07-25 17:12 | PC.SOCIAL ---
IMM UPDATED IMM dated and initialed an copy given to patient
[2021-07-25 17:34] LABS: Glucose Point of Care 151 mg/dL (70-110)
[2021-07-25] MEDS: dexamethasone 4 mg/mL INJ 6 MG IVP (20:14)
[2021-07-25] MEDS: metoprolol succinate ER (24 HR) 25 mg Tablet PO (20:15)
[2021-07-26] VITALS (39 sets, daily range): BP systolic 90–140; BP diastolic 51–84; PULSE 70–86; RESP 12–30; TEMP 36.5–37.1; O2SAT 86–95
[2021-07-26] MEDS: guaiFENesin-dextromethorphan UDC 10 mL 5 ML PO (00:37)
[2021-07-26 00:43] LABS: Anion Gap 15.7 (5-19); Blood Urea Nitrogen 19 mg/dL (8-23); Calcium 7.8 mg/dL (8.5-10.5); Carbon Dioxide 22 mmol/L (22-29); Chloride 99 mmol/L (98-107); Glucose 150 mg/dL (65-115); Osmolality Calculated 279 mOsm/kg (285-295); Potassium 4.7 mmol/L (3.5-5.1); Sodium 132 mmol/L (136-145)
[2021-07-26 00:54] LABS: Glucose Point of Care 200 mg/dL (70-110)
[2021-07-26 01:25] LABS: Basophils % 0.3 %; Eosinophils # 0.1 10^3/uL (0.0-0.8); Eosinophils % 1.1 %; Hematocrit 43.9 % (42.0-52.0); Hemoglobin 15.1 g/dL (11.7-16.6); Lymphocytes # 0.2 10^3/uL (0.8-4.8); Mean Corpuscular HGB Conc 34.4 g/dL (30.0-36.0); Mean Corpuscular Hemoglobin 37.9 pg (28.0-34.0); Mean Corpuscular Volume 110.3 fl (80-94); Mean Platelet Volume 10.6 fL (7.4-10.4); Monocytes # 0.1 10^3/uL (0.2-0.9); Monocytes % 1.9 %; Neutrophils # 5.83 10^3/uL (1.8-7.7); Neutrophils % 91.3 %; Nucleated Red Blood Cells % 0 %; Platelet Count 219 10^3/cmm (130-400); Red Blood Count 3.98 10^6/uL (4.1-5.3); White Blood Count 6.4 10^3/uL (4.0-10.0)
[2021-07-26] MEDS: ipratropium-albuterol 3 mL Neb INHALATION ×6 (03:37→23:43)
--- NOTE | 2021-07-26 05:36 | PC.NURSE ---
Shift note. Pt stable throughout the night on HHF. Pt had multiple episodes of panic when he was attempting to use the urinal which would cause him to desat. Pt reports he is having increased frequency and urgency. Pt also had bright red blood with bowel movements, no other signs of bleeding found. Dr. Pascual notified and eliquis was held and stat CBC was ordered.
[2021-07-26 05:43] LABS: ABG PCO2 34.3 mmHg (35-45); Arterial Blood Gas Hematocrit 51.4 % (42-52); Base Excess ABG 3.7 mmol/L (-2.0-2.0); Blood Gas Allen Test Pos; Blood Gas Operator Identificat JB; Blood Gas Sample Site Radial, right; Blood Gas Sample Type Arterial; HCO3 ABG 26.5 mmol/L (22-26); Oxygen Device HAG; PO2 ABG 53.8 mmHg (80.0-100.0)
[2021-07-26 07:34] LABS: Glucose Point of Care 163 mg/dL (70-110)
--- NOTE | 2021-07-26 07:49 | XRR_ITS ---
PROCEDURE INFORMATION: Exam: XR Chest Exam date and time: 07/26/2021 7:49 AM Age: 71 years old Clinical indication: Covid; Shortness of breath TECHNIQUE: Imaging protocol: XR of the chest. Views: 1 view. COMPARISON: CR XR chest 1V portable [id number] 07/19/2021 2:13 PM FINDINGS: Lungs: Bilateral, multifocal, asymmetric peripheral airspace disease redemonstrated compatible with COVID-19 pneumonia. This appears slightly worse. Pleural spaces: No pleural effusion or pneumothorax. Heart/Mediastinum: The cardiac silhouette is not enlarged. Mediastinal contours are accentuated due to patient rotation. Bones/joints: No acute osseous abnormality. XR/XR chest 1V portable [id number] IMPRESSION: Slight worsening of COVID-19 pneumonia.
[2021-07-26] MEDS: insulin lispro 100 unit/1 mL SUBCUT ×2 (08:23→11:30)
[2021-07-26] MEDS: cholecalciferol (vitamin D3) 1,000 unit Tablet 2000 UNIT PO (08:23)
[2021-07-26] MEDS: hydroxyurea 500 mg Capsule 2000 MG PO (08:23)
[2021-07-26] MEDS: ascorbic acid 500 mg Tablet 1000 MG PO ×2 (08:24→17:06)
[2021-07-26] MEDS: zinc gluconate 50 mg Tablet PO (08:24)
[2021-07-26] MEDS: amiodarone 200 mg Tablet 100 MG PO (08:24)
[2021-07-26] MEDS: pantoprazole DR 40 mg Tablet PO (08:24)
--- NOTE | 2021-07-26 09:47 | PC.CHAP ---
Pastoral Care Encounter/Spiritual Assessment Type of Contact [] Declined health education coordinator visit [] Patient/Family/Request visit [] Outpatient visit [] Follow-up visit [] Physician referral [] Code/Alert [x] Routine visit [] Staff referral [] Actively dying [] Patient sleeping [] Family support [] [] Out of room [] Palliative care [] [] Receiving care in room [] Pre-surgical visit [] Trauma [] Long length of stay [x] ICU visit [] Other: Relational/Emotional Strength [] Patient feels connected with others/family/visitors/staff [] Distress [] Loneliness/isolation [] Abandonment Spirituality of Patient [] Person of [place] [] Attends L[employer] of their [place] [] Believes in Prayer [] Reads Bible or Yazidi materials [] There are Spiritual issues to be addressed Home Health Care Worker Interventions [x] Prayer [] Active listening [] Non-anxious presence [] Spiritual/emotional support [] Crisis/trauma care [] Spiritual counseling [] Bereavement support [] Provided bereavement packet [] Provided Bible/devotional materials [] Provided toy/stuffed animal, coloring book to patient or family member [] Provided Communion [] Anointing/[place] [] Salvation [x] Completed spiritual assessment [] Other: Impact on Illness or Injury [] Angry [] Fearful [] Anxious [] Often cries [] Exhaustion [] Unable to work [] Unable to attend mu-ism [] Unable to walk/stand [] Unable to read [] Unable to drive [] Unable to eat/drink [] Unable to sleep [] Unable to be with family [] Patient intubated [] Other: Summary patient setting up in chair.. being assisted by staff... isolated Time spent with patient
--- NOTE | 2021-07-26 09:49 | PC.NURSE ---
0700 Report received, assessment completed. HFNC 45L/70%. No c/o SOB. VSS. Pt AAOx4, makes all needs known. Uses urinal. 0730 Assisted to chair in room, tolerated well. Required only standby assist. Will monitor.
--- NOTE | 2021-07-26 10:22 | P.PN_ITS ---
Subjective Subjective: Interval history: This morning patient was sitting in his recliner, he is watching television Able to eat and drink endorsing dryness of his throat Overnight required 85% of oxygen this morning he is on 70% persistent hypoxia Repeat chest x-ray this morning showed worsening of infiltrates right greater than left He has been afebrile Multiple bowel movements secondary to Colace Adequate urine output No active chest pain or shortness of breath no conversational dyspnea At rest he does not get any symptoms patient stated that his should not be notified today about worsening hypoxia because of her paranoid/anxiety behavior Study screening for LTAC Vitals/I&O/Wt Last Vital Signs Temp 97.7 F 07/26/21 08:00 Pulse 83 07/26/21 09:40 Resp 22 H 07/26/21 09:40 BP 115/82 07/26/21 08:00 Pulse Ox 90 07/26/21 09:40 07/25/21 07/26/21 07/26/21 22:59 06:59 14:59 Intake Total 480 / 3260 300 / 3560 720 / 720 Output Total 450 / 1200 1210 / 2410 425 / 425 Balance 2059 -910 / 1150 295 / 295 Weight last 48 hrs Weight 76.204 kg Physical Exam Narrative: EXAM NARRATIVE: Patient sitting in recliner 70%, 45 L Heated high flow Bilateral breath sounds with mild rhonchi at the bases No active chest pain S1, S2 variable Abdomen soft Lower extremity no edema Looks well-hydrated EOMI, PERRLA Nonfocal neuro exam Data : 07/26/21 00:03 07/26/21 00:03 A&P Assessment and plan (1) Benign prostatic hyperplasia: Status: Chronic Qualifiers: Lower urinary tract symptom presence: symptoms present Lower urinary tract symptom detail: straining on urination Qualified Code(s): N40.1 - Benign prostatic hyperplasia with lower urinary tract symptoms; R39.16 - Straining to void (2) Hyperglycemia: Status: Acute (3) Chronic anticoagulation: Status: Chronic (4) Polycythemia vera: Status: Chronic (5) Atrial fibrillation: Status: Chronic Qualifiers: Atrial fibrillation type: paroxysmal Qualified Code(s): I48.0 - Paroxysmal atrial fibrillation (6) COVID-19: Status: Acute Additional A&P Information Persistent hypoxia Severe ARDS P/F 75 COVID-19 Screen for LTAC Status post Actemra Not a candidate of baricitinib Afebrile 45 L 70%, x-ray showing worsening infiltrate of COVID-19 pneumonia, overnight required 85% FiO2 Check procalcitonin level I will keep him on Levaquin empirically Patient has been trying his best to prone himself and walk in the room Constipation resolved Urine output adequate Full code Consistent carb diet Hyperglycemia: Currently euglycemic Patient is not improving at this point, high risk for intubation however clinically he does not look distressed no conversational dyspnea or use of respiratory accessory muscles, monitoring on heated high flow for now If intubation required would recommend anesthesiologist to do it Attestations Medical Necessity Statement*: Continue ICU management patient not ready to be transferred out of ICU yet Time Spent in Patient Care: 16 - 35 minutes Coding Level of Care Code Acute Parachute Accessories Attacher for g Fwd Diagnoses Benign prostatic hyperplasia N40.1; R39.16 Lower urinary tract symptom presence: symptoms present Lower urinary tract symptom detail: straining on urination Hyperglycemia R73.9 Chronic anticoagulation Z79.01 Polycythemia vera D45 Atrial fibrillation I48.0 Atrial fibrillation type: paroxysmal COVID-19 U07.1
[2021-07-26 10:57] LABS: Glucose Point of Care 148 mg/dL (70-110)
[2021-07-26] MEDS: FUROsemide 20 mg Tablet PO (10:58)
[2021-07-26 16:51] LABS: Glucose Point of Care 114 mg/dL (70-110)
--- NOTE | 2021-07-26 17:36 | PC.NURSE ---
Shift Note Frequent safety and comfort rounds continue. Orders and/or nursing care completed as indicated. Patient monitored for response to intervention and treatment(s). Education provided includes treatment plan, medications and oxygen safety. Pt verbalizes understanding. VSS. Pt has been up in chair majority of day. Tolerated well. Pt remains on HFNC 45L/70%. Becomes SOB with exertion. No other issues noted. Will continue to monitor.
--- NOTE | 2021-07-26 19:28 | XRR_ITS ---
PROCEDURE INFORMATION: Exam: XR Chest Exam date and time: 07/26/2021 7:28 PM Age: 71 years old Clinical indication: Shortness of breath; Additional info: Check for pneumo TECHNIQUE: Imaging protocol: XR of the chest. Views: 1 view. COMPARISON: CR XR chest 1V portable [id number] 07/26/2021 8:59 AM FINDINGS: Lungs: There is again extensive patchy consolidation throughout the right lung and at the left lung base, similar to prior. Pleural spaces: No visible pleural effusion or pneumothorax. Heart/Mediastinum: Persistent rightward retraction of the heart and mediastinal structures. Bones/joints: Unremarkable. XR/XR chest 1V portable [id number] IMPRESSION: Extensive patchy consolidation distal with pneumonia, again right greater than left. No significant interval change.
[2021-07-26] MEDS: ALPRAZolam 0.5 mg Tablet PO (19:46)
[2021-07-26] MEDS: metoprolol succinate ER (24 HR) 25 mg Tablet PO (19:46)
[2021-07-26] MEDS: dexamethasone 4 mg/mL INJ 6 MG IVP (19:47)
[2021-07-26] MEDS: apixaban 5 mg Tablet PO (21:13)
[2021-07-26 21:16] LABS: Glucose Point of Care 120 mg/dL (70-110)
--- NOTE | 2021-07-26 22:47 | PC.NURSE ---
Precedex dosing Per Dr. Boland, Precedex can be raised to 0.7 immediately (without titration).
[2021-07-27] VITALS (33 sets, daily range): BP systolic 84–129; BP diastolic 53–93; PULSE 66–91; RESP 14–30; TEMP 36.4–37.1; O2SAT 87–100
--- NOTE | 2021-07-27 00:55 | ECG_ITS ---
[facility] Test Date: 2021-07-27 Pat Name: Daquan Duarte Department: Room: ICU11 Gender: Male Filler Blender: : [id number] Requested By: Ivanna Pascual Order Number: [id number] Reading MD: EDUARDO GREENE Measurements Intervals Parks Rate: 74 P: 36 MO: 184 QRS: 1 QRSD: 100 T: 35 QT: 422 QTc: 468 Interpretive Statements SINUS RHYTHM Compared to ECG 07/19/2021 17:54:43 No significant changes Electronically Signed On 07-27-2021 19:55:10 FIRER BOILER by EDUARDO GREENE [email or web address]
[2021-07-27 02:26] LABS: ABG PCO2 37.4 mmHg (35-45); ABG PH Result 7.47 (7.35-7.45); Arterial Blood Gas Hematocrit 50.8 % (42-52); Base Excess ABG 3.2 mmol/L (-2.0-2.0); Blood Gas Allen Test Pos; Blood Gas Operator Identificat JB; Blood Gas Sample Site Radial, right; Blood Gas Sample Type Arterial; HCO3 ABG 26.9 mmol/L (22-26); Oxygen Device HAG
[2021-07-27] MEDS: ipratropium-albuterol 3 mL Neb INHALATION ×6 (04:00→23:10)
[2021-07-27 04:47] LABS: Blood Urea Nitrogen 18 mg/dL (8-23); Calcium 8.2 mg/dL (8.5-10.5); Carbon Dioxide 23 mmol/L (22-29); Chloride 95 mmol/L (98-107); Glucose 201 mg/dL (65-115); Osmolality Calculated 286 mOsm/kg (285-295); Sodium 134 mmol/L (136-145)
[2021-07-27 04:54] LABS: Anion Gap 20.9 (5-19); Potassium 4.9 mmol/L (3.5-5.1)
[2021-07-27 04:56] LABS: Troponin T (5th) Once 11 ng/L (0-15)
[2021-07-27 05:46] LABS: Procalcitonin 0.08 ng/mL (0-0.5)
[2021-07-27] MEDS: levoFLOXacin 750 mg Tablet PO (06:11)
[2021-07-27] MEDS: morphine 4 mg/mL SDV 1 mL 1 MG IVP (06:25)
[2021-07-27 06:47] LABS: D Dimer 3.94 ug/mIFEU (0-0.59)
--- NOTE | 2021-07-27 07:10 | PC.NURSE ---
Report received, assessment completed. VSS. Remains on HFNC 50L/75%. AAOx2, disoriented to place, reoriented PRN. Precedex reduced to 0.5. Pt able to make needs known, uses urinal. No other issues noted at this time. Will monitor.
--- NOTE | 2021-07-27 07:19 | CT_ITS ---
WS: [id number] CT CHEST ANGIOGRAPHY WITH REFORMATS HISTORY: HYPOXIA worsening TECHNIQUE: Contiguous axial images are obtained through the chest during arterial injection of intrav enous contrast. Images are reconstructed to evaluate the pulmonary arteries. MIP imaging also reviewe d. All CT scans at [facility] use at least one of these dose optimization techniques: automat ed exposure control; mA and/or kV adjustment per patient size (includes targeted exams where dose is matched to clinical indication); or iterative reconstruction. CONTRAST: Omnipaque 350; 91 mL IV. DLP: 620.33 mGy.cm COMPARISON: 07/20/2021 Adequate opacification of the pulmonary arteries. Centrally there is no pulmonary embolism. Beyond th e segmental branches the opacification becomes heterogeneous due to the injection rate. Main pulmonar y artery is dilated measuring 4.3 cm. There is also asymmetric enlargement of the RIGHT main pulmonar y artery measuring 3.4 cm. Mild atherosclerosis of the aorta. Heart size is normal. No RIGHT heart st rain. No pericardial or pleural effusion. Continued bilateral moderate progression of the groundglass opacifications bilaterally. Increasing ar eas of consolidation periphery of the lower lung waggoner. No pneumothorax or pneumomediastinum. Fluid in the pericardial recess adjacent to the aorta. Marked fluid distention of the stomach. Spleen is enlarged extending over length of 16 cm. There is a soft tissue mass similar to the spleen at the splenic hilum are this is probably a splenule. No adre nal mass. CT/CT angio chest PE protcl [id number] IMPRESSION: 1. No central pulmonary embolism. 2. Progression of groundglass and consolidation throughout both lungs. 3. No pneumomediastinum. 4. Splenomegaly. 5. Pulmonary hypertension.
[2021-07-27 07:33] LABS: Glucose Point of Care 140 mg/dL (70-110)
[2021-07-27] MEDS: ascorbic acid 500 mg Tablet 1000 MG PO ×2 (08:21→17:51)
[2021-07-27] MEDS: cholecalciferol (vitamin D3) 1,000 unit Tablet 2000 UNIT PO (08:22)
[2021-07-27] MEDS: apixaban 5 mg Tablet PO ×2 (08:22→19:56)
[2021-07-27] MEDS: amiodarone 200 mg Tablet 100 MG PO (08:22)
[2021-07-27] MEDS: zinc gluconate 50 mg Tablet PO (08:22)
[2021-07-27] MEDS: pantoprazole DR 40 mg Tablet PO (08:22)
[2021-07-27] MEDS: hydroxyurea 500 mg Capsule 2000 MG PO (08:25)
--- NOTE | 2021-07-27 09:08 | P.PN_ITS ---
Subjective Subjective: Interval history: Patient does try to drink a lot because of his Dry throat overnight hypoxia worsened, patient became very anxious, Precedex was started This morning it was at 0.5 When I saw him his blood pressure was 107/70 mmHg, He was asking if he could ambulate and get out of bed to chair endorsing fatigue and lethargic Afebrile I have requested another CTA because of worsening D-dimer he has been on Eliquis Requested Dr. Bush to evaluate the patient today, patient is getting worse, hypoxia, high risk for intubation Give him 20 mg of Lasix yesterday to keep him in negative balance Added for empirical coverage because of worsening right-sided consolidation Procalcitonin unremarkable Troponin XI EKG shows early repolarization changes Chest x-ray showed consolidation right greater than left EKG shows sinus rhythm Patient experiencing persistent cough, bringing up brownish sputum Vitals/I&O/Wt Last Vital Signs Temp 97.5 F L 07/27/21 08:00 Pulse 66 07/27/21 08:00 Resp 20 H 07/27/21 08:00 BP 99/58 07/27/21 08:00 Pulse Ox 94 07/27/21 08:00 07/26/21 07/27/21 07/27/21 22:59 06:59 14:59 Intake Total 484.290 / 2044.290 3900.71 / 5945.000 737.203 / 737.203 Output Total 2625 / 4100 1400 / 5500 275 / 275 Balance -2140.710 / -2055.710 2500.71 / 445.000 462.203 / 462.203 Weight last 48 hrs Weight 76.204 kg Physical Exam Narrative: EXAM NARRATIVE: Patient was sitting in his bed Crepitation and rhonchi with crackles noted right greater than left No use of respiratory system muscles Patient is coughing Patient has mild conversational dyspnea Nonfocal neuro exam Lower extremity trace edema Does not appear anxious this morning S1, S2 sinus rhythm Abdomen soft bowel sounds present Data : 07/26/21 00:03 07/27/21 03:50 A&P Assessment and plan (1) Benign prostatic hyperplasia: Status: Chronic Qualifiers: Lower urinary tract symptom presence: symptoms present Lower urinary tract symptom detail: straining on urination Qualified Code(s): N40.1 - Benign prostatic hyperplasia with lower urinary tract symptoms; R39.16 - Straining to void (2) Hyperglycemia: Status: Acute (3) Chronic anticoagulation: Status: Chronic (4) Polycythemia vera: Status: Chronic (5) Atrial fibrillation: Status: Chronic Qualifiers: Atrial fibrillation type: paroxysmal Qualified Code(s): I48.0 - Paroxysmal atrial fibrillation (6) COVID-19: Status: Acute Additional A&P Information Worsening hypoxia Severe ARDS Covid infiltrate worsened right greater than left FiO2 70% flow 45 L on heated high flow FiO2 worsened from 60% in last 48 hours, he does try to prone himself and ambulate in the room Requested radio communications mechanician Dr. Bsuh to evaluate him today Patient is status post Actemra, remdesivir, continue Decadron for now Levaquin was started empirically for worsening infiltrates he has been afebrile procalcitonin unremarkable Requested another chest CT scan overnight EKG, chest x-ray reviewed Troponin unremarkable Precedex weaned down currently 8.5 His blood pressure was 107/60 mmHg when I evaluated him, hold off on IV fluids, he might need another IV Lasix low-dose, Hyperglycemia: HbA1c 5.1 lantus 5 Units at bedtime to cover fasting hyperglycemia Moderate sliding scale Hyponatremia improved with increased p.o. intake Constipation: Resolved DVT prophylaxis: Eliquis high risk for Intubation Consistent carb diet Attestations Medical Necessity Statement*: Continue ICU management Time Spent in Patient Care: 16 - 35 minutes Coding Level of Care Code Acute Meat Stuffer for g Fwd Diagnoses Benign prostatic hyperplasia N40.1; R39.16 Lower urinary tract symptom presence: symptoms present Lower urinary tract symptom detail: straining on urination Hyperglycemia R73.9 Chronic anticoagulation Z79.01 Polycythemia vera D45 Atrial fibrillation I48.0 Atrial fibrillation type: paroxysmal COVID-19 U07.1
[2021-07-27] MEDS: iohexol 350 mg/mL 100 mL Btl IV (09:28)
[2021-07-27 11:15] LABS: Glucose Point of Care 150 mg/dL (70-110)
[2021-07-27] MEDS: insulin lispro 100 unit/1 mL SUBCUT ×2 (11:47→19:56)
--- NOTE | 2021-07-27 12:42 | PC.SOCIAL ---
IMM update IMM not updated as patient isn't accepted to dc in the next 24-48 hours.
[2021-07-27] MEDS: piperacillin-tazobactam 3.375 GM in sodium chloride 0.9% (plus) 50 ML IV ×2 (15:08→23:47)
--- NOTE | 2021-07-27 15:50 | PM.CONSULT ---
Providers/Reason For Consult Consulting Physician/Specialty*: Krishna Bush MD /pulmonary critical care Reason for Consult*: Acute hypoxic respiratory failure secondary to ARDS due to COVID-19 pneumonia Requesting Physician: Kaylie Coreas MD Attending Physician: Kaylie Coreas MD Primary Care Provider: Deisy Hernández DO History of Present Illness History of Present Illness Upon review of chart Patient is Daquan Duarte is a 71 year old male with past medical history of atrial fibrillation on amiodarone and metoprolol, BPH, polycythemia vera on hydroxyurea, came to the emergency room on 07/19/2021 for chief complaint of malaise, upper respiratory symptoms, fatigue, cough, subjective fever, recently diagnosed with Covid, symptom onset started around 07/09/2021. In the ER he was noted to be hypoxemic with saturations 85 to 86% on room air. Initially started on 2 L but gradually increased to 5 L. Patient takes Eliquis for chronic atrial fibrillation. Gradually his oxygen requirements went up to high flow nasal cannula 45 L 70%. Pulmonary critical care consulted for worsening oxygen requirements and patient with ARDS secondary to COVID-19 pneumonia Today morning seen patient at bedside, sitting in chair -On high flow nasal cannula 45 L 70% saturating 91% -Patient was anxious and was started on Precedex today morning -He reported his breathing is better than last couple of days -Other labs and imaging reviewed Review of Systems General: Reports: 10 or more systems reviewed and unremarkable except in HPI and below Meds/Allergies Home Medications and Allergies Home Medications Medication Instructions Recorded Confirmed Last Taken Type apixaban [Eliquis] 5 mg PO BID 09/23/19 07/20/21 07/19/21 History hydroxyurea 2,000 mg PO DAILY 09/23/19 07/20/21 07/19/21 History metoprolol succinate 25 mg PO BID 09/23/19 07/20/21 07/19/21 History terazosin 1 mg PO DAILY 09/23/19 07/20/21 07/19/21 History amiodarone 100 mg PO DAILY 07/20/21 07/20/21 07/19/21 History Allergies Allergy/AdvReac Type Severity Reaction Status Date / Time No Known Allergies Allergy Verified 09/23/19 13:38 Current Medications Current Medications Generic Name Dose Route Start Last Admin Trade Name Freq PRN Reason Stop Dose Admin Albuterol/Ipratropium 3 ml 07/20/21 16:00 07/27/21 15:22 Ipratropium-Albuterol 3 Ml Neb INHALATION 3 ml Q4H.RESPIRATORY SHERRILL Administration Alprazolam 0.5 mg 07/26/21 19:28 07/26/21 19:46 Alprazolam 0.5 Mg Tablet PO 0.5 mg BID PRN Administration ANXIETY Amiodarone HCl 100 mg 07/20/21 09:00 07/27/21 08:22 Amiodarone 200 Mg Tablet PO 100 mg DAILY SHERRILL Administration Apixaban 5 mg 07/20/21 10:30 07/27/21 08:22 Apixaban 5 Mg Tablet PO 5 mg BID@0900,2100 SHERRILL Administration Ascorbic Acid 1,000 mg 07/20/21 09:00 07/27/21 08:21 Ascorbic Acid 500 Mg Tablet PO 1,000 mg BID SHERRILL Administration Benzonatate 100 mg 07/19/21 23:02 07/22/21 09:00 Benzonatate 100 Mg Capsule PO 100 mg TID PRN Administration COUGH Dexamethasone 6 mg 07/20/21 20:00 07/26/21 19:47 Dexamethasone 4 Mg/Ml Inj IVP 6 mg Q24H SHERRILL Administration Docusate Sodium 100 mg 07/20/21 09:00 07/26/21 08:24 Docusate Sodium 100 Mg Capsule PO Not Given BID SHERRILL Guaifenesin/Dextromethorphan 5 ml 07/20/21 05:15 07/26/21 00:37 Guaifenesin-Dextromethorphan Udc 10 Ml PO 5 ml Q4H PRN Administration Cough after tessalon perles Hydroxyurea 2,000 mg 07/20/21 09:00 07/27/21 08:25 Hydroxyurea 500 Mg Capsule PO 2,000 mg DAILY SHERRILL Administration dexmedeTOMIDine 0.9 % NaCL 100 mcg in 25 mls @ 0 mls/hr 07/26/21 21:15 07/27/21 08:55 Precedex IV 0 mcg/kg/hr .Q0M SHERRILL 0 mls/hr Titration Protocol Per Protocol Piperacillin Sod/Tazobactam 50 mls @ 12.5 mls/hr 07/27/21 15:00 07/27/21 15:08 Sod 3.375 gm/ Sodium Chloride IV 12.5 mls/hr Q8H SHERRILL Administration Insulin Human Lispro 0 unit 07/20/21 21:00 07/26/21 21:12 Insulin Lispro 100 Unit/1 Ml SUBCUT Not Given BEDTIME SHERRILL Protocol Insulin Human Lispro 0 unit 07/20/21 08:00 07/27/21 11:47 Insulin Lispro 100 Unit/1 Ml SUBCUT 2 unit TIDWM SHERRILL Administration Protocol Lanolin 1 applic 07/25/21 15:54 07/25/21 16:31 Lanolin Oint 7 Gm TOPICAL 1 appful PRN PRN Administration DRYNESS Metoprolol Succinate 25 mg 07/21/21 19:30 07/26/21 19:46 Metoprolol Succinate Er (24 Hr) 25 Mg Tablet PO 25 mg DAILY@1930 SHERRILL Administration Pantoprazole Sodium 40 mg 07/20/21 09:00 07/27/21 08:[address] 40 Mg Tablet PO 40 mg DAILY SHERRILL Administration Phenol 3 spray 07/23/21 11:21 07/23/21 11:28 Phenol Oral [place] 177 Ml MUCOUS MEM 3 spray Q2H PRN Administration SORE THROAT Terazosin HCl 1 mg 07/20/21 09:00 07/27/21 08:23 Terazosin 1 Mg Capsule PO 1 mg DAILY SHERRILL Administration Vitamin D 2,000 unit 07/20/21 09:00 07/27/21 08:22 Cholecalciferol (Vitamin D3) 1,000 Unit Tablet PO 2,000 unit DAILY SHERRILL Administration Zinc Gluconate 50 mg 07/20/21 09:00 07/27/21 08:22 Zinc Gluconate 50 Mg Tablet PO 50 mg DAILY SHERRILL Administration PFSH Acute PFSH: Medical History Atrial fibrillation on amiodarone and metoprolol Benign prostatic hyperplasia Polycythemia vera Splenomegaly Surgical History No pertinent past surgical history Family History Other Atrial fibrillation Denies family history of Polycythemia vera Social History Smoking and tobacco status: never smoked Alcohol intake: never Substance/Drug Use: never Lives independently: Yes Household members: spouse and children Marital status: Vitals/I&O/Wt Last Vital Signs Temp 98.1 F 07/27/21 12:00 Pulse 78 07/27/21 15:22 Resp 25 H 07/27/21 15:22 BP 117/72 07/27/21 12:00 Pulse Ox 94 07/27/21 15:22 07/27/21 07/27/21 07/27/21 06:59 14:59 22:59 Intake Total 3900.71 / 5945.000 1217.203 / 1217.203 Output Total 1400 / 5500 650 / 650 Balance 2500.71 / 445.000 567.203 / 567.203 Weight last 48 hrs Weight 168 lb Physical Exam Narrative: EXAM NARRATIVE: General: alert, NAD HEENT: conj clear, EOMI, PERRL, mmm, Neck: supple, no meningismus Heme: no cervical LAP Pulmonary: Bilateral diffuse crackles Cardiovascular: rrr, nl s1s2, no mrg Abdomen: soft, nt, nd, no r/g, bs+ Extremities: pulses +, no edema, no c/c : no CVA tenderness Skin: intact, no rash MSK: no back or neck pain Neurologic: grossly intact Data Labs: Other Labs: Laboratory Results WBC 6.4 10^3/uL (4.0- 10.0) 07/26/21 00:03 Corrected WBC Cancelled 07/25/21 00:03 RBC 3.98 10^6/uL (4.1 -5.3) L 07/26/21 00:03 Hgb 15.1 g/dL (11.7-1 6.6) 07/26/21 00:03 Hct 43.9 % (42.0-52.0 ) 07/26/21 00:03 MCV 110.3 fl (80-94) H 07/26/21 00:03 MCH 37.9 pg (28.0-34. 0) H 07/26/21 00:03 MCHC 34.4 g/dL (30.0-3 6.0) 07/26/21 00:03 RDW 15.0 % (12.1-15.1 ) 07/26/21 00:03 Plt Count 219 10^3/cmm (130 -400) 07/26/21 00:03 MPV 10.6 fL (7.4-10.4 ) H 07/26/21 00:03 Gran % Cancelled 07/25/21 00:03 Neut % (Auto) 91.3 % 07/26/21 00:03 Lymph % (Auto) 3.0 % 07/26/21 00:03 Cherry % (Auto) 1.9 % 07/26/21 00:03 Eos % (Auto) 1.1 % 07/26/21 00:03 Baso % (Auto) 0.3 % 07/26/21 00:03 Neut # (Auto) 5.83 10^3/uL (1.8 -7.7) 07/26/21 00:03 Lymph # (Auto) 0.2 10^3/uL (0.8- 4.8) L 07/26/21 00:03 Cherry # (Auto) 0.1 10^3/uL (0.2- 0.9) L 07/26/21 00:03 Eos # (Auto) 0.1 10^3/uL (0.0- 0.8) 07/26/21 00:03 Baso # (Auto) 0.0 10^3/uL (0.0- 0.1) 07/26/21 00:03 Absolute Gran (aut o) Cancelled 07/25/21 00:03 Nucleated RBC % (a uto) 0 % 07/26/21 00:03 Nucleated RBCs # 0.0 /100WBC 07/26/21 00:03 PT 18.80 SECONDS (12 .1-14.9) H 07/19/21 23:11 INR 1.53 (0.8-1.2) H 07/19/21 23:11 APTT 37.5 SECONDS (23. 9-36.7) H 07/19/21 23:11 Fibrinogen 590 mg/dL (174-49 8) H 07/19/21 23:11 D-Dimer 3.94 ug/mIFEU (0- 0.59) H 07/27/21 06:20 Specimen Type Arterial 07/27/21 02:15 Sample Site Radial, right 07/27/21 02:15 ABG pH 7.47 (7.35-7.45) H 07/27/21 02:15 ABG pCO2 37.4 mmHg (35-45) 07/27/21 02:15 ABG pO2 56.0 mmHg (80.0-1 00.0) L 07/27/21 02:15 ABG HCO3 26.9 mmol/L (22-2 6) H 07/27/21 02:15 ABG O2 Saturation 90.9 07/24/21 03:25 ABG Base Excess 3.2 mmol/L (-2.0- 2.0) H 07/27/21 02:15 Omar Test Pos 07/27/21 02:15 A-a O2 Gradient 47.5 mmHg (5-10) H 07/24/21 03:25 Hematocrit 50.8 % (42-52) 07/27/21 02:15 Hgb O2 Saturation 89.1 % (95-100) L 07/24/21 03:25 Carboxyhemoglobin 1.5 %THgb (0.4-20 .1) 07/24/21 03:25 Methemoglobin 0.6 % (0.4-1.5) 07/24/21 03:25 Total Hemoglobin 15.9 g/dL (14-18) 07/24/21 03:25 Sodium 127.0 mmol/L (131 -143) L 07/24/21 03:25 Potassium 4.2 mmol/L (3.5-5 .0) 07/24/21 03:25 Glucose 128.0 mg/dL (70-1 15) H 07/24/21 03:25 Ionized Calcium 1.2 mmol/L (1.1-1 .4) 07/24/21 03:25 O2 Delivery Device Hag 07/27/21 02:15 O2 Liters/Min 45.0 % 07/27/21 02:15 FiO2 70.0 % 07/27/21 02:15 Systems Development Consultant ID Ankur 07/27/21 02:15 Sodium 134 mmol/L (136-1 45) L 07/27/21 03:50 Potassium 4.9 mmol/L (3.5-5 .1) 07/27/21 03:50 Chloride 95 mmol/L (98-107 ) L 07/27/21 03:50 Carbon Dioxide 23 mmol/L (22-29) 07/27/21 03:50 Anion Gap 20.9 (5-19) H 07/27/21 03:50 BUN 18 mg/dL (8-23) 07/27/21 03:50 Creatinine 0.7 mg/dL (0.7-1. 2) 07/27/21 03:50 GFR Calculation Not Reportable 07/27/21 03:50 Glucose 201 mg/dL (65-115 ) H 07/27/21 03:50 POC Glucose 98 mg/dL (70-110) 07/27/21 16:17 Estimat Average Gl ucose 100 07/20/21 05:48 Hemoglobin A1c 5.1 % (4.0-6.0) 07/20/21 05:48 Calculated Osmolal ity 286 mOsm/kg (285- 295) 07/27/21 03:50 Lactic Acid 1.0 mmol/L (0.5-2 .2) 07/19/21 23:11 Calcium 8.2 mg/dL (8.5-10 .5) L 07/27/21 03:50 Phosphorus 3.8 mg/dL (2.5-4. 5) 07/20/21 05:48 Magnesium 1.9 mg/dL (1.7-2. 3) 07/24/21 02:49 Ferritin 473 ng/mL (30-400 ) H 07/19/21 23:11 Total Bilirubin 1.2 mg/dL (0.15-1 .2) 07/20/21 05:48 AST 13 U/L (0-40) 07/20/21 05:48 ALT 14 U/L (0-41) 07/20/21 05:48 Alkaline Phosphata se 77 IU/L (40-130) 07/20/21 05:48 Lactate Dehydrogen ase 234 U/L (135-225) H 07/19/21 23:11 Creatine Kinase 84 U/L (39-308) 07/19/21 23:11 Troponin T Gen 5 n g/L 11 ng/L (0-15) 07/27/21 03:50 Troponin T Baselin e 13 ng/L (0-15) 07/19/21 17:00 Troponin T 120 Min [place] 12.52 ng/L (0-15) 07/19/21 19:41 Delta Troponin T -0.48 ABS# (0-10) L 07/19/21 19:41 Troponin T Hi Sens 6Hr 11.01 ng/L (0-15) 07/19/21 23:11 Troponin T Hi Sens 6Hr Delta -1.99 ng/L (0-12) L 07/19/21 23:11 C-Reactive Protein 75.4 mg/L (0.0-4. 9) H 07/22/21 03:49 NT-Pro-B Natriuret Pep 255 pg/mL (0-125) H 07/19/21 23:11 Total Protein 5.9 g/dL (6.6-8.7 ) L 07/20/21 05:48 Albumin 3.3 g/dL (3.5-5.2 ) L 07/20/21 05:48 Globulin 2.6 g/dL (1.3-4.6 ) 07/20/21 05:48 Procalcitonin 0.08 ng/mL (0-0.5 ) 07/27/21 03:50 Nasal/Oral COVID-1 9 PCR Detected H 07/19/21 21:21 Influenza Type A A g Negative (Negati ve) 07/19/21 23:13 Influenza Type B A g Negative (Negati ve) 07/19/21 23:13 SARS-CoV-2 Ag (Rap id) Positive (Negati ve) H 07/19/21 21:21 Impressions Chest X-Ray 07/26/21 19:28 IMPRESSION: Extensive patchy consolidation distal with pneumonia, again right greater than left. No significant interval change. Chest CTA 07/27/21 07:19 IMPRESSION: 1. No central pulmonary embolism. 2. Progression of groundglass and consolidation throughout both lungs. 3. No pneumomediastinum. 4. Splenomegaly. 5. Pulmonary hypertension. A&P Assessment and plan (1) Acute respiratory failure with hypoxia: Status: Acute (2) ARDS (adult respiratory distress syndrome): Status: Acute (3) COVID-19: Status: Acute (4) Atrial fibrillation: Status: Chronic Qualifiers: Atrial fibrillation type: paroxysmal Qualified Code(s): I48.0 - Paroxysmal atrial fibrillation (5) Chronic anticoagulation: Status: Chronic (6) Hyperglycemia: Status: Acute # Acute hypoxic respiratory failure secondary to ARDS due to COVID-19 pneumonia #History of A. fib RVR on Eliquis # History of polycythemia vera-on hydroxyurea #A1c 5.1, uncontrolled sugars likely secondary to steroids -Patient COVID-19 positive on 07/19/2021 -Symptoms started June -Currently on high flow nasal cannula 45 L 70% saturating 93% -ABG 7.4 7/37/56/26/90% on 70% FiO2 on high flow nasal cannula ; -Low threshold for intubation -Completed 5-day remdesivir, Dexamethasone 6 mg daily, s/p 1 dose of Actemra -currently on CTA 07/27/2021: No central PE, progression of groundglass and consolidation throughout both lungs-more on right side than left. - Procalcitonin 0.08, on prophylactic antibiotic coverage with Zosyn due to increasing oxygen requirements - MRSA negative, Send for bacterial antigens, sputum culture, -BNP 255 -Echo pending -Monitor renal functions, electrolytes, input output-Lasix 20 mg as needed to try to keep net - TO even -On Lantus 5 units and scale coverage for uncontrolled sugars likely secondary to steroids -Already on Eliquis for DVT prophylaxis -Full code -Prognosis guarded -Family updated by hospitalist -Regular diet Review of CT chest-suggestive of worsening GGO's indicating worsening [id number] supportive care and will cover with broad-spectrum antibiotics for possible bacterial superinfection although at this point of time procalcitonin is too low 0.08. Recommendations conveyed to hospitalist, RN, RT taking care of the patient Consult Attestations Medical Necessity Statement: Acute hypoxic respiratory failure secondary to ARDS due to COVID-19 pneumonia-requiring high flow oxygen and close ICU monitoring for impending respiratory failure Time Spent in Patient Care: Greater than 35 minutes (>than 50% of time spent in counselling and/or direct pt care on unit). Critical Care Time: The high probability of a clinically significant, sudden or life threatening deterioration of the patient's [pulmonary endocrine] system(s) required my full and direct attention, intervention and personal management. The critical care time is as shown. This time is in addition to time spent performing any reported procedures but includes the following: [x] Data and vital sign review and interpretation [x] Patient assessment, examination and intervention [x] Documentation [x] Medication orders and management Critical Care Time (min): 45 Coding Level of Care Code New Pt Acute Circle Edger for Chg Fwd Patient Type New History Comprehensive Exam Comprehensive Medical Decision Making High Complexity Diagnoses Acute respiratory failure with hypoxia J96.01 ARDS (adult respiratory distress syndrome) J80 COVID-19 U07.1 Atrial fibrillation I48.0 Atrial fibrillation type: paroxysmal Chronic anticoagulation Z79.01 Hyperglycemia R73.9 Time Spent (min) 45
[2021-07-27 16:26] LABS: Glucose Point of Care 98 mg/dL (70-110)
[2021-07-27 18:00] LABS: C Reactive Protein 1.2 mg/L (0.0-4.9)
--- NOTE | 2021-07-27 18:38 | PC.NURSE ---
PT up in chair most of day. Anxiety at a minimum. Precedex off this morning. HFNC 45L/65%. VSS. No other issues noted. Will monitor.
[2021-07-27 19:39] LABS: Glucose Point of Care 144 mg/dL (70-110)
[2021-07-27] MEDS: dexamethasone 4 mg/mL INJ 6 MG IVP (19:55)
[2021-07-27] MEDS: insulin glargine 100 units/1 mL 5 UNIT SUBCUT (19:56)
[2021-07-28] VITALS (34 sets, daily range): BP systolic 91–146; BP diastolic 48–104; PULSE 68–103; RESP 12–35; TEMP 36.6–37.2; O2SAT 88–98
[2021-07-28] MEDS: ipratropium-albuterol 3 mL Neb INHALATION ×5 (03:11→19:45)
[2021-07-28 03:44] LABS: ABG PCO2 40.2 mmHg (35-45); ABG PH Result 7.46 (7.35-7.45); Arterial Blood Gas Hematocrit 51.3 % (42-52); Base Excess ABG 4.6 mmol/L (-2.0-2.0); Blood Gas Allen Test Pos; Blood Gas Sample Site Radial, right; Blood Gas Sample Type Arterial; HCO3 ABG 28.8 mmol/L (22-26); Oxygen Device NC; PO2 ABG 76.6 mmHg (80.0-100.0)
[2021-07-28 05:23] LABS: Basophils # 0.1 10^3/uL (0.0-0.1); Basophils % 0.8 %; Eosinophils % 0.3 %; Hematocrit 48.6 % (42.0-52.0); Hemoglobin 16.9 g/dL (11.7-16.6); Lymphocytes # 0.2 10^3/uL (0.8-4.8); Lymphocytes % 2.3 %; Mean Corpuscular HGB Conc 34.8 g/dL (30.0-36.0); Mean Corpuscular Hemoglobin 39.3 pg (28.0-34.0); Mean Platelet Volume 10.7 fL (7.4-10.4); Monocytes # 0.1 10^3/uL (0.2-0.9); Monocytes % 1.2 %; Neutrophils # 8.57 10^3/uL (1.8-7.7); Neutrophils % 93.1 %; Nucleated Red Blood Cells % 0 %; Platelet Count 199 10^3/cmm (130-400); White Blood Count 9.2 10^3/uL (4.0-10.0)
[2021-07-28 05:37] LABS: Blood Urea Nitrogen 20 mg/dL (8-23); Calcium 8.2 mg/dL (8.5-10.5); Carbon Dioxide 20 mmol/L (22-29); Chloride 95 mmol/L (98-107); Glucose 142 mg/dL (65-115); Osmolality Calculated 277 mOsm/kg (285-295); Sodium 131 mmol/L (136-145)
[2021-07-28 05:38] LABS: Anion Gap 21.4 (5-19); Potassium 5.4 mmol/L (3.5-5.1)
[2021-07-28] MEDS: piperacillin-tazobactam 3.375 GM in sodium chloride 0.9% (plus) 50 ML IV ×3 (06:02→23:40)
--- NOTE | 2021-07-28 07:36 | PC.NURSE ---
Report received, assessment completed. VSS. Pt up to chair with assist from nursing. Pt able to give self bath with minimal assistance from nursing, oral care, hair care performed. Pt tolerated well. HFNC 45L/65%. Pt AAOx4, no issues noted. Uses urinal without difficulty. Will monitor.
[2021-07-28 07:53] LABS: Glucose Point of Care 133 mg/dL (70-110)
[2021-07-28] MEDS: hydroxyurea 500 mg Capsule 2000 MG PO (08:02)
[2021-07-28] MEDS: apixaban 5 mg Tablet PO ×2 (08:03→21:10)
[2021-07-28] MEDS: cholecalciferol (vitamin D3) 1,000 unit Tablet 2000 UNIT PO (08:03)
[2021-07-28] MEDS: ascorbic acid 500 mg Tablet 1000 MG PO ×2 (08:03→17:39)
[2021-07-28] MEDS: pantoprazole DR 40 mg Tablet PO (08:03)
[2021-07-28] MEDS: zinc gluconate 50 mg Tablet PO (08:03)
[2021-07-28 10:59] LABS: Potassium 5.2 mmol/L (3.5-5.1)
[2021-07-28 11:04] LABS: Glucose Point of Care 108 mg/dL (70-110)
[2021-07-28] MEDS: sodium polystyrene sulfonate 15 gm/60 mL Btl PO (11:12)
[2021-07-28] MEDS: cetylpyridinium Lozenge 1 EACH MUCOUS MEM (11:17)
--- NOTE | 2021-07-28 11:20 | PC.NURSE ---
Pt down to 35L/55%. Tolerating well. Kayexelate given per orders. Will monitor.
--- NOTE | 2021-07-28 13:04 | PM.PN ---
Subjective Subjective: Interval history: This morning patient was sitting in a recliner PaO2 76 Hyperkalemia, given Kayexalate -1.4 L balance Afebrile Most likely will be transferred to LTAC over the weekend Appreciate pulmonology recommendations Patient had some concerns regarding finances regarding placement to LTAC, updated case filler Vitals/I&O/Wt Last Vital Signs Temp 98.3 F 07/28/21 12:00 Pulse 99 07/28/21 12:00 Resp 27 H 07/28/21 12:00 BP 91/77 07/28/21 12:00 Pulse Ox 93 07/28/21 12:00 07/27/21 07/28/21 07/28/21 22:59 06:59 14:59 Intake Total 1010 / 2227.203 163.958 / 2391.161 1470 / 1470 Output Total 605 / 1255 2620 / 3875 825 / 825 Balance 405 / 972.203 -2456.042 / -1483.839 645 / 645 Physical Exam Narrative: EXAM NARRATIVE: Patient is sitting in a recliner Saturating well on 55% FiO2, 35 L S1, S2 sinus rhythm Does not look fluid overloaded Dry cracked lips Mild crackles or rhonchi noted at the bases bilaterally Abdomen soft EOMI, PERRLA Does not appear anxious today Resting comfortably No conversational dyspnea Data : 07/28/21 04:38 07/28/21 10:23 Micro: Microbiology 07/28/21 09:22 Gram Stain - Final Sputum - Expectorated Sputum 07/27/21 19:48 Bacterial Antigens - Final Urine,Clean Catch A&P Assessment and plan (1) ARDS (adult respiratory distress syndrome): Status: Acute (2) Acute respiratory failure with hypoxia: Status: Acute (3) Benign prostatic hyperplasia: Status: Chronic Qualifiers: Lower urinary tract symptom presence: symptoms present Lower urinary tract symptom detail: straining on urination Qualified Code(s): N40.1 - Benign prostatic hyperplasia with lower urinary tract symptoms; R39.16 - Straining to void (4) Hyperglycemia: Status: Acute (5) Chronic anticoagulation: Status: Chronic (6) Polycythemia vera: Status: Chronic (7) Atrial fibrillation: Status: Chronic Qualifiers: Atrial fibrillation type: paroxysmal Qualified Code(s): I48.0 - Paroxysmal atrial fibrillation (8) COVID-19: Status: Acute Additional A&P Information Severe ARDS FiO2 55%, 35 L Heated high flow Appreciate pulmonary recommendations Antibiotics escalated to Zosyn Afebrile Hyperkalemia treated with Kayexalate Patient is not anxious appearing today Clinically stable at this point plan to transfer him to LTAC over the weekend No change in medications today continue Decadron Status post Actemra and remdesivir Repeat CTA did not show PE showing worsening COVID-19 infiltrate We will get venous Doppler rule out DVT because of high D-dimer Full code Cardiac diet DVT prophylaxis currently on Eliquis for his history of A. fib his heart rate seems to be stable no signs of RVR Attestations Medical Necessity Statement*: Placement to LTAC Time Spent in Patient Care: less than 15 minutes Coding Level of Care Code Acute Refueling Ramp Supervisor for g Fwd Diagnoses ARDS (adult respiratory distress syndrome) J80 Acute respiratory failure with hypoxia J96.01 Benign prostatic hyperplasia N40.1; R39.16 Lower urinary tract symptom presence: symptoms present Lower urinary tract symptom detail: straining on urination Hyperglycemia R73.9 Chronic anticoagulation Z79.01 Polycythemia vera D45 Atrial fibrillation I48.0 Atrial fibrillation type: paroxysmal COVID-19 U07.1
--- NOTE | 2021-07-28 13:08 | USCV_ITS ---
Daquan Duarte Age: 71 Gender: M : 1950 Exam Date: 07/28/2021 14:29 Ordering Phys: Kaylie Coreas MD Technologist: [place] [facility] [place]: [place] HISTORY: Lower extremity edema. PROCEDURES: The venous duplex Doppler examination of both lower extremities was performed in the standard fashion. The following venous structures were evaluated: common femoral vein, profunda vein, proximal portion of the greater saphenous vein, superficial femoral vein, and the popliteal vein. FINDINGS: Normal 2-D Doppler and augmentation and compressibility throughout the lower extremity venous structures. Additional imaging through the proximal calf veins also reveals no thrombus. Limited evaluation of the greater saphenous vein is patent with no thrombus. CONCLUSIONS No DVT bilateral lower extremities. Dr. Carla Stevens DO (Electronically Signed) Final Date: 28 July 2021 16:01 S
[2021-07-28 16:57] LABS: Glucose Point of Care 109 mg/dL (70-110)
--- NOTE | 2021-07-28 17:47 | PC.NURSE ---
Shift Note Frequent safety and comfort rounds continue. Orders and/or nursing care completed as indicated. Patient monitored for response to intervention and treatment(s). Education provided includes treatment plan, medications for elevated potassium, reduction of O2 needs, and potential transfer to LTAC tomorrow. Pt verbalizes understanding and asks questions. VSS. Pt uses urinal. Given kayexelate, no output as of yet. HFNC reduced to 35L/50% earlier in day, tolerated well. Denies any needs at this time. Will continue to monitor.
[2021-07-28 20:30] LABS: Glucose Point of Care 127 mg/dL (70-110)
[2021-07-28] MEDS: dexamethasone 4 mg/mL INJ 6 MG IVP (21:10)
[2021-07-28] MEDS: insulin glargine 100 units/1 mL 5 UNIT SUBCUT (21:10)
[2021-07-29] VITALS (35 sets, daily range): BP systolic 84–130; BP diastolic 47–74; PULSE 66–103; RESP 14–32; TEMP 36.6–37.2; O2SAT 88–96
[2021-07-29] MEDS: ipratropium-albuterol 3 mL Neb INHALATION ×6 (00:12→20:04)
[2021-07-29 04:38] LABS: Basophils % 0.3 %; Eosinophils % 0.3 %; Hematocrit 47.2 % (42.0-52.0); Hemoglobin 16.1 g/dL (11.7-16.6); Lymphocytes # 0.3 10^3/uL (0.8-4.8); Lymphocytes % 2.4 %; Mean Corpuscular HGB Conc 34.1 g/dL (30.0-36.0); Mean Corpuscular Volume 114.3 fl (80-94); Mean Platelet Volume 11.8 fL (7.4-10.4); Monocytes # 0.3 10^3/uL (0.2-0.9); Monocytes % 2.5 %; Neutrophils # 9.67 10^3/uL (1.8-7.7); Neutrophils % 92.2 %; Nucleated Red Blood Cells # 0.1 /100WBC; Nucleated Red Blood Cells % 0.6 %; Platelet Count 177 10^3/cmm (130-400); Red Blood Count 4.13 10^6/uL (4.1-5.3); Red Cell Distribution Width 16.1 % (12.1-15.1); White Blood Count 10.5 10^3/uL (4.0-10.0)
[2021-07-29 05:05] LABS: ABG PCO2 41.9 mmHg (35-45); ABG PH Result 7.47 (7.35-7.45); Arterial Blood Gas Hematocrit 52.3 % (42-52); Blood Gas Allen Test Pos; Blood Gas Sample Site Radial, left; Blood Gas Sample Type Arterial; Carboxyhemoglobin 1.3 %THgb (0.4-20.1); HCO3 ABG 30.5 mmol/L (22-26); HGB O2 Sat 89.3 % (95-100); Methemoglobin 0.6 % (0.4-1.5); PO2 ABG 57.8 mmHg (80.0-100.0); Total Hemoglobin 17.1 g/dL (14-18)
[2021-07-29 05:07] LABS: Oxygen Device NC
[2021-07-29 05:41] LABS: Slide Review Slide Review Perform
[2021-07-29] MEDS: piperacillin-tazobactam 3.375 GM in sodium chloride 0.9% (plus) 50 ML IV ×3 (06:09→22:53)
[2021-07-29 07:34] LABS: Glucose Point of Care 128 mg/dL (70-110)
[2021-07-29] MEDS: ascorbic acid 500 mg Tablet 1000 MG PO ×2 (07:48→17:14)
[2021-07-29] MEDS: apixaban 5 mg Tablet PO ×2 (07:48→20:21)
[2021-07-29] MEDS: cholecalciferol (vitamin D3) 1,000 unit Tablet 2000 UNIT PO (07:48)
[2021-07-29] MEDS: zinc gluconate 50 mg Tablet PO (07:48)
[2021-07-29] MEDS: pantoprazole DR 40 mg Tablet PO (07:48)
[2021-07-29] MEDS: hydroxyurea 500 mg Capsule 2000 MG PO (07:50)
--- NOTE | 2021-07-29 08:33 | PC.NURSE ---
0700 Report received, assessment completed. VSS, AAOx4. Assisted to chair, ambulates without assist. HFNC in use, 35L/55%. No c/o SOB. No other issues noted. CLWR, will monitor.
--- NOTE | 2021-07-29 11:14 | PC.SOCIAL ---
IMM updated Updated pt on IMM. No questions voiced. Provided pt care nurse a copy to give to pt. Initialed ,dated, & timed copy in chart.
[2021-07-29 12:37] LABS: Blood Urea Nitrogen 20 mg/dL (8-23); Calcium 8.2 mg/dL (8.5-10.5); Carbon Dioxide 24 mmol/L (22-29); Chloride 93 mmol/L (98-107); Glucose 130 mg/dL (65-115); Osmolality Calculated 278 mOsm/kg (285-295); Sodium 132 mmol/L (136-145)
[2021-07-29 12:43] LABS: Procalcitonin 0.08 ng/mL (0-0.5)
[2021-07-29 12:55] LABS: Anion Gap 19.8 (5-19); Potassium 4.8 mmol/L (3.5-5.1)
--- NOTE | 2021-07-29 16:08 | PM.PN ---
Subjective Subjective: Interval history: Patient was resting in his recliner, heated high flow 55% 35 L Saturating well Clinically looks euvolemic No active distress Vitals/I&O/Wt Last Vital Signs Temp 98.1 F 07/29/21 12:00 Pulse 74 07/29/21 15:37 Resp 19 H 07/29/21 15:28 BP 117/67 07/29/21 12:00 Pulse Ox 92 07/29/21 15:28 07/29/21 07/29/21 07/29/21 06:59 14:59 22:59 Intake Total 50 / 2290 1290 / 1290 Output Total 760 / 2365 1175 / 1175 Balance -710 / -75 115 / 115 Physical Exam Narrative: EXAM NARRATIVE: Sitting in recliner Heated high flow 55% 35 L No active respiratory distress Mild rhonchi at the bases Soft abdomen S1, S2 Neurological: Nonfocal neuro exam Data : 07/29/21 04:00 07/29/21 12:07 Micro: Microbiology 07/28/21 09:22 Gram Stain - Final Sputum - Expectorated Sputum Sputum Culture - Preliminary A&P Assessment and plan (1) ARDS (adult respiratory distress syndrome): Status: Acute (2) Acute respiratory failure with hypoxia: Status: Acute (3) Benign prostatic hyperplasia: Status: Chronic Qualifiers: Lower urinary tract symptom presence: symptoms present Lower urinary tract symptom detail: straining on urination Qualified Code(s): N40.1 - Benign prostatic hyperplasia with lower urinary tract symptoms; R39.16 - Straining to void (4) Hyperglycemia: Status: Acute (5) Chronic anticoagulation: Status: Chronic (6) Polycythemia vera: Status: Chronic (7) Atrial fibrillation: Status: Chronic Qualifiers: Atrial fibrillation type: paroxysmal Qualified Code(s): I48.0 - Paroxysmal atrial fibrillation (8) COVID-19: Status: Acute Additional A&P Information Severe ARDS COVID-19 Currently saturating well on 55% 35 L Plan to transfer to LTAC in next 24 hours I am not planning to change any of his medications today continue IV steroids and Zosyn Hyperkalemia: We will treat Kayexalate Full code Consistent carb diet hyperglycemia improved with use of Lantus and sliding scale Continue chronic anticoagulation which he takes for A. fib For high D-dimer CTA was repeated no signs of PE no signs of DVT Attestations Medical Necessity Statement*: Awaiting placement to LTAC Time Spent in Patient Care: less than 15 minutes Coding Level of Care Code Acute Cattle Broker for [facility] Fwd Diagnoses ARDS (adult respiratory distress syndrome) J80 Acute respiratory failure with hypoxia J96.01 Benign prostatic hyperplasia N40.1; R39.16 Lower urinary tract symptom presence: symptoms present Lower urinary tract symptom detail: straining on urination Hyperglycemia R73.9 Chronic anticoagulation Z79.01 Polycythemia vera D45 Atrial fibrillation I48.0 Atrial fibrillation type: paroxysmal COVID-19 U07.1
--- NOTE | 2021-07-29 17:49 | PC.NURSE ---
Shift Note Frequent safety and comfort rounds continue. Orders and/or nursing care completed as indicated. Patient monitored for response to intervention and treatment(s). Education provided includes treatment plan, medications, oxygen demands and future transfer. Pt verbalizes understanding. He also understands that he needs to decrease PO fluid intake. VSS. HFNC at 10L. Denies any needs. Will continue to monitor.
[2021-07-29 20:16] LABS: Glucose Point of Care 157 mg/dL (70-110)
[2021-07-29] MEDS: dexamethasone 4 mg/mL INJ 6 MG IVP (20:21)
[2021-07-29] MEDS: insulin glargine 100 units/1 mL 5 UNIT SUBCUT (20:22)
[2021-07-29] MEDS: insulin lispro 100 unit/1 mL SUBCUT (20:27)
[2021-07-30] VITALS (35 sets, daily range): BP systolic 90–125; BP diastolic 48–95; PULSE 65–112; RESP 16–35; O2SAT 86–96; BMI 21.8
[2021-07-30] MEDS: ipratropium-albuterol 3 mL Neb INHALATION ×7 (00:16→23:36)
[2021-07-30] MEDS: cetylpyridinium Lozenge 1 EACH MUCOUS MEM ×2 (02:10→21:03)
[2021-07-30] MEDS: piperacillin-tazobactam 3.375 GM in sodium chloride 0.9% (plus) 50 ML IV ×3 (06:15→22:17)
--- NOTE | 2021-07-30 06:22 | PC.NURSE ---
No acute changes overnight. V/S stable.
[2021-07-30] MEDS: cholecalciferol (vitamin D3) 1,000 unit Tablet 2000 UNIT PO (08:16)
[2021-07-30] MEDS: zinc gluconate 50 mg Tablet PO (08:17)
[2021-07-30] MEDS: ascorbic acid 500 mg Tablet 1000 MG PO ×2 (08:17→17:38)
[2021-07-30] MEDS: hydroxyurea 500 mg Capsule 2000 MG PO (08:18)
[2021-07-30] MEDS: pantoprazole DR 40 mg Tablet PO (08:18)
[2021-07-30] MEDS: apixaban 5 mg Tablet PO ×2 (08:21→20:26)
--- NOTE | 2021-07-30 12:32 | PM.PN ---
Subjective Subjective: Interval history: Seen this AM. Now on 9L NC. No acute events overnight. Vitals/I&O/Wt Last Vital Signs Temp 98.1 F 07/29/21 12:00 Pulse 81 07/30/21 10:00 Resp 24 H 07/30/21 10:00 BP 106/62 07/30/21 10:00 Pulse Ox 94 07/30/21 10:00 07/29/21 07/30/21 07/30/21 22:59 06:59 14:59 Intake Total 530 / 1820 107.083 / 1927.083 450 / 450 Output Total 900 / 2075 700 / 2775 650 / 650 Balance -370 / -255 -592.917 / -847.917 -200 / -200 Weight last 48 hrs Weight 76.204 kg Physical Exam Narrative: EXAM NARRATIVE: Seen appearing comfortable. No acute respiratory distress. Normal respiratory effort on 9L NC. Mild rhonchi at the bases Soft abdomen, nontender S1, S2 Neurological:Non Focal No LE edema Data : 07/29/21 04:00 07/29/21 12:07 Micro: Microbiology 07/28/21 09:22 Gram Stain - Final Sputum - Expectorated Sputum Sputum Culture - Final A&P Assessment and plan (1) ARDS (adult respiratory distress syndrome): Status: Acute (2) Acute respiratory failure with hypoxia: Status: Acute (3) Benign prostatic hyperplasia: Chronically on Terazosin Status: Chronic Qualifiers: Lower urinary tract symptom presence: symptoms present Lower urinary tract symptom detail: straining on urination Qualified Code(s): N40.1 - Benign prostatic hyperplasia with lower urinary tract symptoms; R39.16 - Straining to void (4) Hyperglycemia: Status: Acute (5) Chronic anticoagulation: Status: Chronic (6) Polycythemia vera: On hydroxyurea Status: Chronic (7) Atrial fibrillation: Status: Chronic Qualifiers: Atrial fibrillation type: paroxysmal Qualified Code(s): I48.0 - Paroxysmal atrial fibrillation (8) COVID-19: Status: Acute Additional A&P Information #Severe ARDS #COVID-19 Currently saturating well on 9L NC Plan to transfer to LTAC at discharge. I am not planning to change any of his medications today continue IV steroids and Zosyn Hyperkalemia: Resolved. Will recheck labs in AM. Full code Consistent carb diet hyperglycemia improved with use of Lantus and sliding scale Continue chronic anticoagulation which he takes for A. 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
--- NOTE | 2021-07-30 18:22 | NUR.SHIFT ---
Shift Note Frequent safety and comfort rounds continue. Orders and/or nursing care completed as indicated. Patient monitored for response to intervention and treatment(s). Education provided includes[]. Patient and/or telephone service representative [ResponseToTeaching]. Will continue to monitor. has been up in chair most of day with 02at 9 l nc has c/o sore throat so provided soft food at this time maintain o2 sats most of day
[2021-07-30 20:23] LABS: Glucose Point of Care 151 mg/dL (70-110)
[2021-07-30] MEDS: insulin glargine 100 units/1 mL 5 UNIT SUBCUT (20:27)
[2021-07-30] MEDS: dexamethasone 4 mg/mL INJ 6 MG IVP (20:27)
[2021-07-30] MEDS: insulin lispro 100 unit/1 mL SUBCUT (20:27)
[2021-07-31] VITALS (26 sets, daily range): BP systolic 100–124; BP diastolic 62–83; PULSE 63–77; RESP 14–27; TEMP 37; O2SAT 89–99; BMI 21.7
[2021-07-31] MEDS: ipratropium-albuterol 3 mL Neb INHALATION ×6 (03:06→23:11)
--- NOTE | 2021-07-31 04:06 | PC.NURSE ---
Patient resting in bed. No acute changes, no s/s of distress.
[2021-07-31 05:24] LABS: Basophils # 0.1 10^3/uL (0.0-0.1); Basophils % 0.9 %; Hematocrit 49.9 % (42.0-52.0); Hemoglobin 17.1 g/dL (11.7-16.6); Lymphocytes # 0.3 10^3/uL (0.8-4.8); Lymphocytes % 2.3 %; Mean Corpuscular HGB Conc 34.3 g/dL (30.0-36.0); Mean Corpuscular Hemoglobin 38.7 pg (28.0-34.0); Mean Corpuscular Volume 112.9 fl (80-94); Mean Platelet Volume 11.3 fL (7.4-10.4); Monocytes # 0.3 10^3/uL (0.2-0.9); Monocytes % 2.4 %; Neutrophils # 11.73 10^3/uL (1.8-7.7); Neutrophils % 92.9 %; Nucleated Red Blood Cells % 0 %; Platelet Count 196 10^3/cmm (130-400); Red Blood Count 4.42 10^6/uL (4.1-5.3); Red Cell Distribution Width 16.2 % (12.1-15.1); White Blood Count 12.6 10^3/uL (4.0-10.0)
[2021-07-31] MEDS: cetylpyridinium Lozenge 1 EACH MUCOUS MEM (05:31)
[2021-07-31] MEDS: piperacillin-tazobactam 3.375 GM in sodium chloride 0.9% (plus) 50 ML IV ×3 (06:00→23:27)
[2021-07-31] MEDS: pantoprazole DR 40 mg Tablet PO (08:13)
[2021-07-31] MEDS: zinc gluconate 50 mg Tablet PO (08:13)
[2021-07-31] MEDS: cholecalciferol (vitamin D3) 1,000 unit Tablet 2000 UNIT PO (08:14)
[2021-07-31] MEDS: ascorbic acid 500 mg Tablet 1000 MG PO ×2 (08:14→16:39)
[2021-07-31] MEDS: apixaban 5 mg Tablet PO ×2 (08:15→20:46)
[2021-07-31] MEDS: hydroxyurea 500 mg Capsule 2000 MG PO (09:19)
--- NOTE | 2021-07-31 09:20 | PC.CHAP ---
Pastoral Care Encounter/Spiritual Assessment Type of Contact [] Declined outreach coordinator visit [] Patient/Family/Request visit [] Outpatient visit [] Follow-up visit [] Physician referral [] Code/Alert [x] Routine visit [] Staff referral [] Actively dying [] Patient sleeping [] Family support [] [] Out of room [] Palliative care [] [] Receiving care in room [] Pre-surgical visit [] Trauma [] Long length of stay [x] ICU visit [x] Other: patient setting up in bed.. having breakfast Relational/Emotional Strength [] Patient feels connected with others/family/visitors/staff [] Distress [] Loneliness/isolation [] Abandonment Spirituality of Patient [] Person of Linda [] Attends Gnosticism of their Linda [] Believes in Prayer [] Reads Bible or Faith materials [] There are Spiritual issues to be addressed De Icer Kit Assembler Interventions [x] Prayer [] Active listening [] Non-anxious presence [] Spiritual/emotional support [] Crisis/trauma care [] Spiritual counseling [] Bereavement support [] Provided bereavement packet [] Provided Bible/devotional materials [] Provided toy/stuffed animal, coloring book to patient or family member [] Provided Communion [] Anointing/[place] [] Salvation [x] Completed spiritual assessment [] Other: Impact on Illness or Injury [] Angry [] Fearful [] Anxious [] Often cries [] Exhaustion [] Unable to work [] Unable to attend judaism [] Unable to walk/stand [] Unable to read [] Unable to drive [] Unable to eat/drink [] Unable to sleep [] Unable to be with family [] Patient intubated [] Other: Summary Time spent with patient
--- NOTE | 2021-07-31 11:04 | PC.NURSE ---
Report received. Assessment completed. Morning medications administered. Lung sounds diminished, but clear. Patient reports redness of face is chronic. No other notable findings. Patient is eager to transfer.
--- NOTE | 2021-07-31 15:27 | PM.PN ---
Subjective Subjective: Interval history: On 7 L of nasal cannula, endorsing odynophagia, he has candidal rash Afebrile No overnight events He has been trying to prone himself Out of bed to chair Vitals/I&O/Wt Last Vital Signs Temp 98.1 F 07/29/21 12:00 Pulse 69 07/31/21 14:04 Resp 18 07/31/21 13:06 BP 105/67 07/31/21 12:00 Pulse Ox 96 07/31/21 13:06 07/31/21 07/31/21 07/31/21 06:59 14:59 22:59 Intake Total 50 / 1410 530 / 530 Output Total 1725 / 3525 1050 / 1050 Balance -1675 / -2115 -520 / -520 Weight last 48 hrs Weight 76.204 kg Physical Exam Narrative: EXAM NARRATIVE: No acute respiratory distress Dry cracked lips Fungal candidal rash noted S1, S2 Clinically looks slightly dehydrated Abdomen soft No audible stridor or wheezing Currently on 7 L nasal cannula No acute respiratory distress no conversational dyspnea Data : 07/31/21 05:01 07/29/21 12:07 A&P Assessment and plan (1) ARDS (adult respiratory distress syndrome): Status: Acute (2) Benign prostatic hyperplasia: Status: Chronic Qualifiers: Lower urinary tract symptom presence: symptoms present Lower urinary tract symptom detail: straining on urination Qualified Code(s): N40.1 - Benign prostatic hyperplasia with lower urinary tract symptoms; R39.16 - Straining to void (3) Hyperglycemia: Status: Acute (4) Chronic anticoagulation: Status: Chronic (5) Polycythemia vera: Status: Chronic (6) Atrial fibrillation: Status: Chronic Qualifiers: Atrial fibrillation type: paroxysmal Qualified Code(s): I48.0 - Paroxysmal atrial fibrillation (7) COVID-19: Status: Acute Additional A&P Information Hypoxia related to COVID-19 Severe ARDS Currently doing well on 7 L nasal cannula De-escalate steroids he had received 11 days of IV steroids Check procalcitonin, Transfer out of ICU Might not qualify for LTAC anymore because of his improvement, plan to send him home if his O2 requirement improves, will get PT eval Start nystatin for candidal rash Continue Zosyn since initiation of IV antibiotics is also requirement has improved however he has stayed afebrile, no significant leukocytosis Consistent carb diet Hyperglycemia continue Accu-Cheks and sliding scale Full code DVT prophylaxis suffice with Eliquis Constipation: We will give bowel regimen Attestations Medical Necessity Statement*: Transfer out of ICU Time Spent in Patient Care: less than 15 minutes Coding Level of Care Code Acute 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
--- NOTE | 2021-07-31 15:53 | PC.SOCIAL ---
IMM updated Updated pt on IMM. No questions voiced. Initialed ,dated, & timed copy in chart.
[2021-07-31] MEDS: nystatin 100,000 unit/mL UDC 5 mL 500000 UNIT PO ×2 (16:40→20:45)
[2021-07-31] MEDS: sennosides-docusate Tablet 1 TAB PO (18:03)
--- NOTE | 2021-07-31 18:28 | PC.NURSE ---
Shift Note Frequent safety and comfort rounds continue. Orders and/or nursing care completed as indicated. Patient monitored for response to intervention and treatment(s). Education provided includes oxygen safety, medication education upon administration, current plan of care and current plan to transfer to 2nd floor. Patient verbalizes understanding. Patient denies pain at this time and has denied pain this shift. Uneventful shift. NC 7L, oxygenating in the high 80's to low 90's throughout shift. Patient up to chair since breakfast and would like to remain in chair at this time.
[2021-07-31 20:03] LABS: Glucose Point of Care 138 mg/dL (70-110)
[2021-07-31] MEDS: dexamethasone 4 mg/mL INJ 6 MG IVP (20:45)
[2021-07-31] MEDS: insulin glargine 100 units/1 mL 5 UNIT SUBCUT (20:46)
[2021-08-01] VITALS (9 sets, daily range): BP systolic 130; BP diastolic 79; PULSE 76–83; RESP 16–18; O2SAT 86–97; BMI 21.4
[2021-08-01] MEDS: ipratropium-albuterol 3 mL Neb INHALATION ×3 (03:00→11:32)
[2021-08-01 03:16] LABS: ABG PCO2 39.4 mmHg (35-45); ABG PH Result 7.46 (7.35-7.45); Arterial Blood Gas Hematocrit 54.2 % (42-52); Base Excess ABG 3.8 mmol/L (-2.0-2.0); Blood Gas Allen Test Pos; Blood Gas Sample Site Radial, right; Blood Gas Sample Type Arterial; Oxygen Device NC
[2021-08-01 05:39] LABS: Blood Urea Nitrogen 21 mg/dL (8-23); Calcium 8.2 mg/dL (8.5-10.5); Carbon Dioxide 21 mmol/L (22-29); Chloride 96 mmol/L (98-107); Glucose 157 mg/dL (65-115); Osmolality Calculated 280 mOsm/kg (285-295); Sodium 132 mmol/L (136-145)
[2021-08-01 05:41] LABS: Anion Gap 20.2 (5-19); Potassium 5.2 mmol/L (3.5-5.1)
[2021-08-01 05:44] LABS: Procalcitonin 0.07 ng/mL (0-0.5)
[2021-08-01 06:08] LABS: Basophils # 0.1 10^3/uL (0.0-0.1); Basophils % 0.5 %; Hematocrit 48.5 % (42.0-52.0); Lymphocytes # 0.3 10^3/uL (0.8-4.8); Lymphocytes % 2.1 %; Mean Corpuscular HGB Conc 35.1 g/dL (30.0-36.0); Mean Corpuscular Hemoglobin 38.9 pg (28.0-34.0); Mean Platelet Volume 10.8 fL (7.4-10.4); Monocytes # 0.1 10^3/uL (0.2-0.9); Monocytes % 0.7 %; Neutrophils # 13.69 10^3/uL (1.8-7.7); Neutrophils % 94.5 %; Nucleated Red Blood Cells % 0 %; Platelet Count 210 10^3/cmm (130-400); Red Blood Count 4.37 10^6/uL (4.1-5.3); Red Cell Distribution Width 16.3 % (12.1-15.1); White Blood Count 14.5 10^3/uL (4.0-10.0)
[2021-08-01] MEDS: piperacillin-tazobactam 3.375 GM in sodium chloride 0.9% (plus) 50 ML IV (06:09)
[2021-08-01] MEDS: cholecalciferol (vitamin D3) 1,000 unit Tablet 2000 UNIT PO (09:14)
[2021-08-01] MEDS: pantoprazole DR 40 mg Tablet PO (09:14)
[2021-08-01] MEDS: ascorbic acid 500 mg Tablet 1000 MG PO (09:14)
[2021-08-01] MEDS: hydroxyurea 500 mg Capsule 2000 MG PO (09:14)
[2021-08-01] MEDS: zinc gluconate 50 mg Tablet PO (09:14)
[2021-08-01] MEDS: nystatin 100,000 unit/mL UDC 5 mL 500000 UNIT PO (09:14)
[2021-08-01] MEDS: sennosides-docusate Tablet 1 TAB PO (09:14)
[2021-08-01] MEDS: apixaban 5 mg Tablet PO (09:19)
--- NOTE | 2021-08-01 11:16 | P.DS_ITS ---
Discharge Providers Date of Admission: 07/20/21 07:00 Date of Discharge: August 01, 2021 Attending Provider at Admission: Catia Lei MD Attending Provider at Discharge: Kaylie Coreas MD Primary Care Provider: Deisy Hernández DO Diagnoses at Discharge Discharge Diagnosis (1) ARDS (adult respiratory distress syndrome): Status: Acute (2) Benign prostatic hyperplasia: Status: Chronic Qualifiers: Lower urinary tract symptom detail: straining on urination Lower urinary tract symptom presence: symptoms present Qualified Code(s): N40.1 - Benign prostatic hyperplasia with lower urinary tract symptoms; R39.16 - Straining to void (3) Hyperglycemia: Status: Acute (4) Chronic anticoagulation: Status: Chronic (5) Polycythemia vera: Status: Chronic (6) Atrial fibrillation: Status: Chronic Permanent problem details: on amiodarone and metoprolol Qualifiers: Atrial fibrillation type: paroxysmal Qualified Code(s): I48.0 - Paroxysmal atrial fibrillation (7) COVID-19: Status: Acute Reason for Visit Reason for Visit: COVID +/SOB/DIZZY Hospital Course Hospital Course Patient was admitted on 07/19 for hypoxia related to COVID-19. He was started on remdesivir and IV steroids, for worsening of hypoxia he received Actemra. Because of worsening of hypoxia he was put on heated high flow, initially he was started on 2 L which gradually worsened, biomedical engineering professor was consulted when his O2 saturation worsened at 45 L, 70% FiO2. Severe ARDS. Multiple CT chest were done which did not show acute pulmonary embolism, he was kept on IV steroids, he finished remdesivir regimen. With addition of Zosyn we did see improvement in his oxygen requirement(however he remained afebrile, no leukocytosis, pr ocalcitonin unremarkable, cultures negative to date, he was accepted at LTAC) we were able to finally wean him off heated high flow, he was downgraded to 5 L nasal cannula at the time of discharge. He declined home health services. Discharged home on 08/01. He did develop candidal/oral thrush for which he will get nystatin regimen Physical Exam Narrative: EXAM NARRATIVE: Clinically euvolemic Oral thrush EOMI, PERRLA Nonfocal exam Abdomen soft S1, S2 Saturating well on 5 L nasal cannula Sinus rhythm Aphthous ulcers noted Discharge Data Data Completed and Pending: Completed Studies During Hospitalization Category Date Time Status CT angio chest PE protcl [id number] Rout ine Cat Scan 07/27/21 07:[address] angio chest PE protcl [id number] Stat Cat Scan 07/20/21 14:57 Completed XR chest 1V jacob ble [id number] Routine Exams 07/26/21 07:49 Completed XR chest 1V jacob ble [id number] Stat Exams 07/26/21 19:28 Completed XR chest 1V jacob ble [id number] Urgent Exams 07/19/21 13:55 [place] [id number] Routin e Ultrasound 07/28/21 13:08 Completed Labs from last 24 hours 08/01/21 08/01/21 08/01/21 06:00 04:44 04:44 WBC 14.5 H Cancelled Corrected WBC Cancelled RBC 4.37 Cancelled Hgb 17.0 H Cancelled Hct 48.5 Cancelled MCV 111.0 H Cancelled MCH 38.9 H Cancelled MCHC 35.1 Cancelled RDW 16.3 H Cancelled Plt Count 210 Cancelled MPV 10.8 H Cancelled Gran % Cancelled Neut % (Auto) 94.5 Cancelled Lymph % (Auto) 2.1 Cancelled Wilkinson % (Auto) 0.7 Cancelled Eos % (Auto) 0.0 Cancelled Baso % (Auto) 0.5 Cancelled Neut # (Auto) 13.69 H Cancelled Lymph # (Auto) 0.3 L Cancelled Wilkinson # (Auto) 0.1 L Cancelled Eos # (Auto) 0.0 Cancelled Baso # (Auto) 0.1 Cancelled Absolute Gran (aut o) Cancelled Nucleated RBC % (a uto) 0 Cancelled Nucleated RBCs # 0.0 Cancelled Specimen Type Sample Site ABG pH ABG pCO2 ABG pO2 ABG HCO3 ABG Base Excess Omar Test Hematocrit O2 Delivery Device O2 Liters/Min Service And Repair Supervisor ID Sodium 132 L Potassium 5.2 H Chloride 96 L Carbon Dioxide 21 L Anion Gap 20.2 H BUN 21 Creatinine 0.7 GFR Calculation Not Reportable Glucose 157 H POC Glucose Calculated Osmolal ity 280 L Calcium 8.2 L Procalcitonin 0.07 08/01/21 07/31/21 03:05 19:41 WBC Corrected WBC RBC Hgb Hct MCV MCH MCHC RDW Plt Count MPV Gran % Neut % (Auto) Lymph % (Auto) Wilkinson % (Auto) Eos % (Auto) Baso % (Auto) Neut # (Auto) Lymph # (Auto) Wilkinson # (Auto) Eos # (Auto) Baso # (Auto) Absolute Gran (aut o) Nucleated RBC % (a uto) Nucleated RBCs # Specimen Type Arterial Sample Site Radial, right ABG pH 7.46 H ABG pCO2 39.4 ABG pO2 78.0 L ABG HCO3 28.0 H ABG Base Excess 3.8 H Omar Test Pos Hematocrit 54.2 H O2 Delivery Device Nc O2 Liters/Min 7.0 Service And Repair Supervisor ID [email or web address] Sodium Potassium Chloride Carbon Dioxide Anion Gap BUN Creatinine GFR Calculation Glucose POC Glucose 138 H Calculated Osmolal ity Calcium Procalcitonin Vitals: Last Vital Signs Temp 98.6 F 07/31/21 14:00 Pulse 82 08/01/21 08:36 Resp 16 08/01/21 08:27 BP 130/79 08/01/21 08:00 Pulse Ox 94 08/01/21 10:29 Discharge Plan Discharge Patient Disposition: Home Condition: Stable Prescriptions: New albuterol sulfate 90 mcg/actuation HFA aerosol inhaler 2 inh inhalation Q8H PRN (Reason: shortness of breath or wheezing) Qty: 8.5 RF: 3 nystatin 500,000 unit tablet 500,000 unit PO QID Qty: 30 RF: 0 levofloxacin 750 mg tablet 750 mg PO DAILY 4 Days Qty: 4 RF: 0 Continued Eliquis 5 mg Tablet 5 mg PO BID RF: 0 hydroxyurea 500 mg Capsule 2,000 mg PO DAILY RF: 0 metoprolol succinate 25 mg Tablet Extended Release 24 Hr 25 mg PO BID RF: 0 terazosin 1 mg Capsule 1 mg PO DAILY RF: 0 amiodarone 100 mg Tablet 100 mg PO DAILY RF: 0 Discharge Orders: Discharge Order (Routine); Ordered 08/01/21 Ordered By: Kaylie Coreas Other Ambulatory Orders: DME: Oxygen (Order) Location: None Selected Ordered By: Kaylie Coreas DME: Oxygen (Order) Location: None Selected Ordered By: Kaylie Coreas Referrals: Jose Ross DO [Physician] - 08/14/21 10:00 am Discharge Diet: As Directed and Regular Discharge Activity: Increase activity as tolerated Patient Instructions: Albuterol (By breathing) (ProAir, AccuNeb, Proventil, Proventil..., Nystatin (By mouth), Levofloxacin (By mouth), ARDS (Acute Respiratory Distress Syndrome) (GEN), Acute Respiratory Failure (GEN), Opioid Safety Discharge Attestations Time Spent in Discharge Care*: less than 30 min Quality Metrics Clinical Quality Measures During this hospital stay, did patient experience: None Coding Level of Care Code Acute Chg FW DC note Diagnoses ARDS (adult respiratory distress syndrome) J80 Benign prostatic hyperplasia N40.1; R39.16 Lower urinary tract symptom detail: straining on urination Lower urinary tract symptom presence: symptoms present Hyperglycemia R73.9 Chronic anticoagulation Z79.01 Polycythemia vera D45 Atrial fibrillation I48.0 Atrial fibrillation type: paroxysmal COVID-19 U07.1
== END 2021-08-01 14:36 | disposition home or self-care (01) | DRG 177 ==
LOC: ER 21:52 → ER IP 23:42 → MEDSURG 07-20 13:34 → ICU 07-21 17:52
PROVIDERS: Internal Medicine; Internal Medicine Pulmonary Disease; Student in an Organized Health Care Education/Training Program; Admitting Provider Hospitalist; Emergency Provider Emergency Medicine; PCP Surgery Plastic and Reconstructive Surgery; Visit Provider Internal Medicine
DX: U07.1 COVID-19 (principal); J12.82 Pneumonia due to coronavirus disease 2019; J80 Acute respiratory distress syndrome; I48.20 Chronic atrial fibrillation, unspecified; E87.1 Hypo-osmolality and hyponatremia; B37.0 Candidal stomatitis; D45 Polycythemia vera; N40.1 Benign prostatic hyperplasia with lower urinary tract symptoms; R39.16 Straining to void; R73.9 Hyperglycemia, unspecified; T38.0X5A Adverse effect of glucocorticoids and synthetic analogues, initial encounter; K59.00 Constipation, unspecified; Z79.01 Long term (current) use of anticoagulants
CPT/HCPCS: 36415; 36416; 36600; 71045; 71275; 80048; 80051; 80053; 82330; 82550; 82728; 82803; 82805; 82962; 83036; 83605; 83615; 83735; 83880; 84100; 84132; 84145; 84484; 85025; 85378; 85384; 85610; 85730; 86140; 86403; 87040; 87070; 87205; 87426; 87635; 87641; 87804; 93005; 93970; 94640; 94664; 94762; 96361; 96372; 96374; 97110; 97161; 99285; J1100; J1815 ×2; J2270; J2543; J3262; J7030; J7040; J8999; Q9967

== ENCOUNTER → 2021-10-31 11:47 | Outpatient (BNVA) | payer MEDICARE, OTHER, SELFPAY | PROVIDERS: PCP Surgery Plastic and Reconstructive Surgery; Visit Provider Surgery Plastic and Reconstructive Surgery | DX: D45 Polycythemia vera (principal) | CPT/HCPCS: 85025 ==

== ENCOUNTER → 2022-01-16 11:44 | Outpatient (BNVA) | payer MEDICARE, OTHER, SELFPAY | PROVIDERS: PCP Surgery Plastic and Reconstructive Surgery; Visit Provider Surgery Plastic and Reconstructive Surgery | DX: D45 Polycythemia vera (principal) | CPT/HCPCS: 85025 ==

== ENCOUNTER → 2022-06-26 09:51 | Outpatient (BNVA) | payer MEDICARE, OTHER, SELFPAY | PROVIDERS: PCP Surgery Plastic and Reconstructive Surgery; Visit Provider Surgery Plastic and Reconstructive Surgery | DX: D45 Polycythemia vera (principal) | CPT/HCPCS: 85025 ==

== ENCOUNTER → 2022-07-31 10:06 | Outpatient (BNVA) | payer MEDICARE, OTHER, SELFPAY | PROVIDERS: PCP Surgery Plastic and Reconstructive Surgery; Visit Provider Surgery Plastic and Reconstructive Surgery | DX: D75.1 Secondary polycythemia (principal) | CPT/HCPCS: 85025 ==

== ENCOUNTER → 2022-10-23 16:26 | Outpatient (BNVA) | payer MEDICARE, OTHER, SELFPAY | PROVIDERS: PCP Surgery Plastic and Reconstructive Surgery; Visit Provider Surgery Plastic and Reconstructive Surgery | DX: D45 Polycythemia vera (principal); D64.9 Anemia, unspecified | CPT/HCPCS: 80053; 85025 ==

== ENCOUNTER 2023-01-09 08:35 | Outpatient (CLI) | payer MEDICARE, OTHER, SELFPAY ==
--- NOTE | 2023-01-09 08:48 | XR_ITS ---
WS: [id number] Exam: XR chest 2V* [id number] Date/Time of Exam: 01/09/2023 8:50 AM Reason For Exam: BRONCHIECTASIS Comparison 09/26/2020. There are patchy interstitial densities in the mid and lower right lung. The left lung is clear. No p neumothorax or pleural effusion. Normal cardiomediastinal silhouette. Regional bony elements are inta ct. Recommendations: A repeat chest x-ray in 10 days to 2 weeks could be helpful if thought to be clinica lly necessary. XR/XR chest 2V* [id number] IMPRESSION: 1. Patchy interstitial infiltrates in the mid and lower right lung. This may re present pneumonia but more than likely these changes are chronic. The remainder of the chest is unremarkable.
== END 2023-01-09 08:36 | disposition home or self-care (01) ==
LOC: RAD 08:43
PROVIDERS: PCP Surgery Plastic and Reconstructive Surgery; Visit Provider Surgery Plastic and Reconstructive Surgery
DX: J47.0 Bronchiectasis with acute lower respiratory infection (principal)
CPT/HCPCS: 71046

== ENCOUNTER → 2023-02-05 10:36 | Outpatient (BNVA) | payer MEDICARE, OTHER, SELFPAY | PROVIDERS: PCP Surgery Plastic and Reconstructive Surgery; Visit Provider Surgery Plastic and Reconstructive Surgery | DX: D45 Polycythemia vera (principal); D64.9 Anemia, unspecified; R73.9 Hyperglycemia, unspecified | CPT/HCPCS: 85025 ==

== ENCOUNTER → 2023-03-12 09:43 | Outpatient (BNVA) | payer MEDICARE, OTHER, SELFPAY | PROVIDERS: PCP Surgery Plastic and Reconstructive Surgery; Visit Provider Surgery Plastic and Reconstructive Surgery | DX: I48.91 Unspecified atrial fibrillation (principal) | CPT/HCPCS: 85025 ==

== ENCOUNTER → 2023-09-23 12:36 | Outpatient (BNVA) | payer MEDICARE, OTHER, SELFPAY | PROVIDERS: PCP Surgery Plastic and Reconstructive Surgery; Visit Provider Nurse Practitioner | DX: R09.81 Nasal congestion (principal) | CPT/HCPCS: 87400 ==